=== PATIENT | female | born 1940 | race Caucasian/White ===

== ENCOUNTER → 2016-11-02 | Outpatient (CLI) | payer MEDICARE ==
[2016-11-02 13:40] LABS: MEAN CORPUSCULAR HEMOGLOBIN 30.9 pg (27.0-33.0); MEAN CORPUSCULAR HGB CONC 32.8 g/dl (32.0-36.5); MEAN CORPUSCULAR VOLUME 94.2 fl (80.0-96.0); PLATELET COUNT, AUTOMATED 170 10^3/uL (150-450); RED CELL DISTRIBUTION WIDTH 11.9 % (11.5-14.5); WHITE BLOOD COUNT 3.1 10^3/uL (4.0-10.0)
[2016-11-02 13:42] LABS: ADD MANUAL DIFFER YES; DIFF SLIDE NUMBER 167
[2016-11-02 14:17] LABS: EOSINOPHILS 1 % (0-5)
[2016-11-02 14:19] LABS: ANISOCYTOSIS 1+
[2016-11-02 14:49] LABS: ALBUMIN 3.8 GM/DL (3.2-5.2); ALKALINE PHOSPHATASE 77 U/L (45-117); ALT/SGPT 12 U/L (12-78); ANION GAP 7 MEQ/L (8-16); AST/SGOT 19 U/L (15-37); BILIRUBIN,TOTAL 0.5 MG/DL (0.2-1.0); BLOOD UREA NITROGEN 10 MG/DL (7-18); CALCIUM LEVEL 8.9 MG/DL (8.8-10.2); CARBON DIOXIDE LEVEL 27 MEQ/L (21-32); CHLORIDE LEVEL 103 MEQ/L (98-107); CREATININE FOR GFR 0.88 MG/DL (0.55-1.02); FREE T4 1.09 NG/DL (0.76-1.46); GLOMERULAR FILTRATION RATE > 60.0 (>39); GLUCOSE, FASTING 92 MG/DL (83-110); POTASSIUM SERUM 4.1 MEQ/L (3.5-5.1); SODIUM LEVEL 137 MEQ/L (136-145)
== END ==
LOC: M SMT 10:04
PROVIDERS: ATTEND Physician Assistant
DX: R42 Dizziness and giddiness (principal)

== ENCOUNTER → 2017-11-04 | Outpatient (CLI) | payer MEDICARE ==
[2017-11-04 13:54] LABS: BASO % 0.9 % (0.0-1.0); EOS # 0.1 10^3/uL (0.0-0.50); HEMATOCRIT 36.9 % (36.0-47.0); LYMPH # 0.7 10^3/uL (1.5-4.5); LYMPH % 19.3 % (24.0-44.0); MEAN CORPUSCULAR HEMOGLOBIN 30.8 pg (27.0-33.0); MEAN CORPUSCULAR HGB CONC 32.5 g/dl (32.0-36.5); MEAN CORPUSCULAR VOLUME 94.9 fl (80.0-96.0); MONO # 0.3 10^3/uL (0.0-0.8); MONO % 9.8 % (0.0-5.0); NEUTROPHILS # 2.3 10^3/uL (1.8-7.7); PLATELET COUNT, AUTOMATED 177 10^3/uL (150-450); RED BLOOD COUNT 3.89 10^6/uL (4.00-5.40); RED CELL DISTRIBUTION WIDTH 12.1 % (11.5-14.5); WHITE BLOOD COUNT 3.4 10^3/uL (4.0-10.0)
[2017-11-04 14:22] LABS: ALBUMIN 3.8 GM/DL (3.2-5.2); ALBUMIN/GLOBULIN RATIO 0.83 (1.00-1.93); ALKALINE PHOSPHATASE 75 U/L (45-117); ALT/SGPT 12 U/L (12-78); ANION GAP 8 MEQ/L (8-16); AST/SGOT 19 U/L (7-37); BILIRUBIN,TOTAL 0.5 MG/DL (0.2-1.0); BLOOD UREA NITROGEN 10 MG/DL (7-18); CALCIUM LEVEL 8.6 MG/DL (8.8-10.2); CARBON DIOXIDE LEVEL 26 MEQ/L (21-32); CHLORIDE LEVEL 103 MEQ/L (98-107); CREATININE FOR GFR 1.02 MG/DL (0.55-1.30); FERRITIN 73 NG/ML (8-252); FREE T4 1.12 NG/DL (0.76-1.46); GLOMERULAR FILTRATION RATE 56.2 (>39); GLUCOSE, FASTING 87 MG/DL (70-100); IRON (FE) 89 UG/DL (50-170); PERCENT SATURATION 28.3 % (13.2-45.0); SODIUM LEVEL 137 MEQ/L (136-145); TOTAL IRON BINDING CAPACITY 315 UG/DL (250-450); TOTAL PROTEIN 8.4 GM/DL (6.4-8.2)
[2017-11-06 00:06] LABS: Lyme Disease IgG/IgM Antibodie <0.91 ISR (0.00-0.90); Lyme Disease IgM Ab Quantitati <0.80 index (0.00-0.79)
== END ==
LOC: M SMT 09:40
DX: Z00.01 Encounter for general adult medical examination with abnormal findings (principal); Z79.899 Other long term (current) drug therapy
CPT/HCPCS: 83550

== ENCOUNTER → 2019-06-19 | Outpatient (CLI) | payer MEDICARE ==
[2019-06-19 15:35] LABS: BASO % 0.8 % (0.0-1.0); EOS % 0.8 % (0.0-3.0); HEMATOCRIT 37.6 % (36.0-47.0); HEMOGLOBIN 12.4 g/dl (12.0-15.5); LYMPH # 0.6 10^3/uL (1.5-5.0); LYMPH % 12.4 % (24.0-44.0); MEAN CORPUSCULAR HEMOGLOBIN 32.1 pg (27.0-33.0); MEAN CORPUSCULAR VOLUME 97.4 fl (80.0-96.0); MONO # 0.4 10^3/uL (0.0-0.8); MONO % 8.5 % (0.0-5.0); NEUTROPHILS # 3.9 10^3/uL (1.5-8.5); NEUTROPHILS % 77.3 % (36.0-66.0); PLATELET COUNT, AUTOMATED 208 10^3/uL (150-450); RED BLOOD COUNT 3.86 10^6/uL (4.00-5.40); WHITE BLOOD COUNT 5.1 10^3/uL (4.0-10.0)
[2019-06-20 15:49] LABS: BILIRUBIN,TOTAL 0.4 MG/DL (0.2-1.0); CALCIUM LEVEL 9.3 MG/DL (8.8-10.2); CHOLESTEROL RISK RATIO 2.45 (<5); CREATININE FOR GFR 0.98 MG/DL (0.55-1.30); FREE T4 1.27 NG/DL (0.76-1.46); GLOMERULAR FILTRATION RATE 58.7 (>39); POTASSIUM SERUM 3.9 MEQ/L (3.5-5.1); THYROID STIMULATING HORMONE 2.37 uIU/ML (0.358-3.740); TOTAL PROTEIN 7.9 GM/DL (6.4-8.2)
[2019-06-20 16:03] LABS: TOTAL 25(OH) VITAMIN D 34.6 NG/ML (30.0-100.0)
== END ==
LOC: M PLALAB 13:40
PROVIDERS: ATTEND Physician Assistant
DX: R53.83 Other fatigue (principal); Z79.899 Other long term (current) drug therapy

== ENCOUNTER → 2019-10-13 | Outpatient (CLI) | payer MEDICARE | LOC: M LABSMTC 12:22 | PROVIDERS: ATTEND Family Medicine | DX: Z11.59 Encounter for screening for other viral diseases (principal) | CPT/HCPCS: C9803; U0003 ==

== ENCOUNTER → 2019-11-15 | Outpatient (CLI) | payer MEDICARE ==
[2019-11-15 13:52] LABS: BASO % 0.7 % (0.0-1.0); EOS # 0.1 10^3/uL (0.0-0.5); EOS % 1.5 % (0.0-3.0); HEMATOCRIT 35.6 % (36.0-47.0); HEMOGLOBIN 11.2 g/dl (12.0-15.5); LYMPH # 0.6 10^3/uL (1.5-5.0); LYMPH % 15.7 % (24.0-44.0); MEAN CORPUSCULAR HEMOGLOBIN 30.4 pg (27.0-33.0); MEAN CORPUSCULAR HGB CONC 31.5 g/dl (32.0-36.5); MEAN CORPUSCULAR VOLUME 96.7 fl (80.0-96.0); MONO # 0.4 10^3/uL (0.0-0.8); MONO % 9.6 % (0.0-5.0); NEUTROPHILS % 72.3 % (36.0-66.0); PLATELET COUNT, AUTOMATED 191 10^3/uL (150-450); RED BLOOD COUNT 3.68 10^6/uL (4.00-5.40); WHITE BLOOD COUNT 4.1 10^3/uL (4.0-10.0)
[2019-11-15 14:15] LABS: ALBUMIN 3.7 GM/DL (3.2-5.2); ALT/SGPT 9 U/L (12-78); BILIRUBIN,TOTAL 0.4 MG/DL (0.2-1.0); BLOOD UREA NITROGEN 16 MG/DL (7-18); CALCIUM LEVEL 9.3 MG/DL (8.8-10.2); CARBON DIOXIDE LEVEL 30 MEQ/L (21-32); CHLORIDE LEVEL 105 MEQ/L (98-107); CREATININE FOR GFR 0.87 MG/DL (0.55-1.30); GLOMERULAR FILTRATION RATE > 60.0 (>39); GLUCOSE, FASTING 72 MG/DL (70-100); POTASSIUM SERUM 4.3 MEQ/L (3.5-5.1); SODIUM LEVEL 139 MEQ/L (136-145); TOTAL PROTEIN 7.5 GM/DL (6.4-8.2)
[2019-11-15 14:23] LABS: TOTAL 25(OH) VITAMIN D 38.7 NG/ML (30.0-100.0)
[2019-11-15 14:24] LABS: FOLATE 13.4 NG/ML (>5.4); VITAMIN B12 LEVEL 412 PG/ML (247-911)
[2019-11-21 11:12] LABS: CERULOPLASMIN 22.1 mg/dL (19.0-39.0); COPPER PLASMA 108 ug/dL (72-166); LEAD BLOOD ADULT <1 ug/dL (0-4); Lyme Disease IgG/IgM Antibodie <0.91 ISR (0.00-0.90); Lyme Disease IgM Ab Quantitati <0.80 index (0.00-0.79); MERCURY LEVEL <1.0 ug/L (0.0-14.9); VITAMIN B1 LEVEL WHOLE BLOOD 95.1 nmol/L (66.5-200.0); VITAMIN B6,PYRIDOXAL PHOSPHATE 18.1 ug/L (2.0-32.8); VITAMIN E(ALPHA TOCOPHEROL) 8.6 mg/L (9.0-29.0); VITAMIN E(GAMMA TOCOPHEROL) 0.5 mg/L (0.5-4.9)
== END ==
LOC: M PLALAB 11:02
PROVIDERS: ATTEND Psychiatry & Neurology Neurology
DX: R25.1 Tremor, unspecified (principal); R53.83 Other fatigue; Z79.899 Other long term (current) drug therapy

== ENCOUNTER → 2020-11-29 | Outpatient (CLI) | payer MEDICARE ==
[~2020-11-29] MED LIST: CARB25TA18 PO; LEXA1TAB PO
[2020-11-29 16:04] LABS: EOS # 0.1 10^3/uL (0.0-0.5); EOS % 2.6 % (0.0-3.0); HEMATOCRIT 34.7 % (36.0-47.0); HEMOGLOBIN 10.8 g/dl (12.0-15.5); LYMPH # 0.6 10^3/uL (1.5-5.0); LYMPH % 14.7 % (24.0-44.0); MEAN CORPUSCULAR HEMOGLOBIN 30.6 pg (27.0-33.0); MEAN CORPUSCULAR HGB CONC 31.1 g/dl (32.0-36.5); MEAN CORPUSCULAR VOLUME 98.3 fl (80.0-96.0); MONO # 0.4 10^3/uL (0.0-0.8); MONO % 11.4 % (2.0-8.0); NEUTROPHILS # 2.7 10^3/uL (1.5-8.5); PLATELET COUNT, AUTOMATED 147 10^3/uL (150-450); RED BLOOD COUNT 3.53 10^6/uL (4.00-5.40); WHITE BLOOD COUNT 3.9 10^3/uL (4.0-10.0)
[2020-11-29 16:41] LABS: CALCIUM LEVEL 8.6 MG/DL (8.8-10.2); CREATININE FOR GFR 1.04 MG/DL (0.55-1.30); GLOMERULAR FILTRATION RATE 54.6 (>39); MAGNESIUM LEVEL 0.7 MG/DL (1.8-2.4); POTASSIUM SERUM 4.3 MEQ/L (3.5-5.1)
== END ==
LOC: M PLALAB 11:52
PROVIDERS: ATTEND Physician Assistant
DX: Z01.818 Encounter for other preprocedural examination (principal)

== ENCOUNTER → 2020-12-21 | Outpatient (CLI) | payer MEDICARE ==
[~2020-12-21] MED LIST changes: +B-12100T2 PO; +VITAMIN D PO
== END ==
LOC: M LABSMTC 09:25
PROVIDERS: ATTEND Anesthesiology
DX: Z01.818 Encounter for other preprocedural examination (principal); Z11.52 Encounter for screening for COVID-19

== ENCOUNTER 2020-12-26 11:57 | Day surgery (SDC) | payer MEDICARE ==
[~2020-12-26] VITALS: Ht 154.9 cm; Wt 64.5 kg
[~2020-12-26 11:57] MED LIST changes: +DUOVISC (0.50ML VISCOAT/0.85ML PROVISC) OPHTH KIT As Ordered ONE; +LIDOCAINE 1% SDV 5ML VIAL As Ordered ONE; +LR 1,000 ML IV SCH; +MAXITROL OPHTH SUSP 5 ML As Ordered ONE; +MIDAZOLAM INJ 2MG/2ML VIAL (J2250 PER 1MG) As Ordered ONE; +fentaNYL 100 MCG/2 ML INJECTION (J3010) As Ordered ONE
--- OUTSIDE RECORDS SUMMARY | 2020-12-26 12:02 | CCD | Continuity of Care Document ---
Author Author Sonia VILLALPANDO Organization Unknown Address [address] [place] [address] 6 [address] [place] [address] Phone [phone] Care Team Providers Care Customer Service Leader Name Role Phone Ana Laura Amato D.O. AUTM [phone] Aamir Garcia AUTM [phone] Problems Active Problems Provider Date Dizziness and giddiness MAE Denis Onset: 10/31/19 16 Basal cell carcinoma of face MAE Denis Onset: 02/2017 Insomnia MAE Denis Onset: 12/08/2017 History of malignant neoplasm of skin MAE Denis O nset: 12/08/2017 Parkinson's disease Onset: Social History Type Date Description Comments Sex Unknown ETOH Use Denies alcohol use Tobacco Use Start: Unknown Patient has never smoked Recreational Drug Use Denies Drug Use Smoking Status Reviewed: 11/28/20 Patient has never smoked Exercise Type/Frequency Walks daily Sun Exposure Uses sunscreen Seat Belt/Car Seat Always uses seat belt Allergies and adverse reactions Active Allergies Criticality Reaction | Severity Comments Date Penicillin Unable to assess criticality Urticaria 10/30/2015 Medications Active Medications SIG Qnty Indications Ordering Provide r Date Vitamin B 12 500mcg Tablets 1 by mouth every day 90tabs D51.8 Ana Laura Amato D.O. 01/29 Azelastine HCL (Nasal) 0.15% Solut ion 2 sprays each nostril daily 90ml J30.9 Ana Laura Amato D.O. 01/30/2020 Vitamin D3 5000Unit Capsules 1 by mouth every day Unknown Ropinirole HCL 0.25mg Tablets take one by mouth three times a day Unknown 00 Multivitamin Adult Tablets 1 by mouth every day Unknown Escitalopram Oxalate 10mg Tablets Unknown Carbidopa-Levodopa ER 25-100mg Tab lets ER Unknown Immunizations Description No Information Available Vital Signs Date Vital Result Comment 11/29/2020 10:43am BP Systolic 138 mmHg BP Diastolic 82 mmHg Height 61.3 inches 5'1.30" Weight 145.00 lb BMI (Body Mass Index) 27.1 kg/m2 Heart Rate 77 /min Respiratory Rate 20 /min Body Temperature 97.4 F O2 % BldC Oximetry 99 % [place] Body Weight 105 lb 01/30/2020 10:46am BP Systolic 132 mmHg BP Diastolic 86 mmHg Height 61.3 inches 5'1.30" Weight 140.38 lb BMI (Body Mass Index) 26.3 kg/m2 Heart Rate 78 /min Respiratory Rate 16 /min Body Temperature 97.8 F O2 % BldC Oximetry 98 % [place] Body Weight 105 lb Results Test Acquired Date Facility Test Result H/L Range Note Basic Metabolic Profile 11/29/2020 [facility] Outpatient T lety (Registration) [address] [place] [address] [phone] Glucose, Fasting 79 mg/dL Normal 70-100 Blood Urea Nitrogen 15 mg/dL Normal 7-18 Creatinine For GFR 1.04 mg/dL Normal 0.55-1.30 Glomerular Filtration Rate 54.6 Normal >39 1 Sodium Level 139 mEq/L Normal 136-145 Potassium Serum 4.3 mEq/L Normal 3.5-5.1 Chloride Level 106 mEq/L Normal 98-107 Carbon Dioxide Level 29 mEq/L Normal 21-32 Anion Gap 4 mEq/L Low 8-16 Calcium Level 8.6 mg/dL Low 8.8-10.2 CBC With Differential 11/29/2020 [facility] Outpatient Tisha moore (Registration) [address] [place] [address] [phone] White Blood Count 3.9 10 Low 4.0-10.0 Red Blood Count 3.53 10 Low 4.00-5.40 Hemoglobin 10.8 g/dL Low 12.0-15.5 Hematocrit 34.7 % Low 36.0-47.0 Mean Corpuscular Volume 98.3 fl High 80.0-96.0 Mean Corpuscular Hemoglobin 30.6 pg Normal 27.0-33.0 Mean Corpuscular HGB Conc 31.1 g/dL Low 32.0-36.5 Red Cell Distribution Width 12.7 % Normal 11.5-14.5 Platelet Count, Automated 147 10 Low 150-450 Neutrophils % 70.0 % High 36.0-66.0 Lymph % 14.7 % Low 24.0-44.0 Archer % 11.4 % High 2.0-8.0 Eos % 2.6 % Normal 0.0-3.0 Baso % 1.0 % Normal 0.0-1.0 Immature Granulocyte % 0.3 % Normal 0-3.0 Nucleated Red Blood Cell % 0.0 % Normal 0-0 Neutrophils # 2.7 10 Normal 1.5-8.5 Lymph # 0.6 10 Low 1.5-5.0 Archer # 0.4 10 Normal 0.0-0.8 Eos # 0.1 10 Normal 0.0-0.5 Baso # 0.0 10 Normal 0.0-0.2 Laboratory test finding 11/29/2020 [facility] Outpatient lety (Registration) [address] [place] [address] [phone] Magnesium Level 0.7 mg/dL Critical low 1.8-2.4 Order 11/29/2020 In House Orders EKG see results in chart 1 Units are mL/min/1.73 m2 Chronic Kidney Disease Staging per NKF: Stage I & II GFR >=60 Normal to Mildly Decreased Stage III GFR 30-59 Moderately Decreased Stage IV GFR 15-29 Severely Decreased Stage V GFR <15 Very Little GFR Left ESRD GFR <15 on LIGHTING ADVISER Procedures Date Code Description Status 11/29/2020 52201 Office/Outpatient Established Lo w MDM 20-29 Min Completed 11/29/2020 78211 Electrocardiogram Complete Compl eted Medical Devices Description No Information Available Encounters Type Date Location Provider Dx Diagnosis Office Visit 11/29/2020 10:40a [facility] MAE Stein Z01.818 Encounter for other preproce dural examination H25.21 Age-related cataract, morgag nian type, right eye Assessments Date Code Description Provider 11/29/2020 Z01.818 Encounter for other preprocedura l examination MAE Denis 11/29/2020 H25.21 Age-related cataract, morgagnian type, right eye MAE Denis Plan of Treatment Future Appointment(s):* 06/11/2021 9:00 am - Ana Laura Amato D.O. at [facility] 11/29/2020 - MAE Denis* Z01.818 Encounter for other preprocedural examination* Comments:* Your exam was unremarkable today, and we will check baseline labs. Given those being acceptable, we will deem you medically optimized for your upcoming procedure. * Follow up:* May with for Medicare wellness visit. * H25.21 Age-related cataract, morgagnian type, right eye Functional Status Description No Information Available Mental Status Description No Information Available Referrals Description No Information Available
--- OUTSIDE RECORDS SUMMARY | 2020-12-26 12:02 | CCD | Continuity of Care Document ---
Author Author Sonia VILLALPANDO Organization Unknown Address [address] [place] [address] 6 [address] [place] [address] Phone [phone] Care Team Providers Care Floorman Name Role Phone Ana Laura Amato D.O. AUTM Aamir Garcia AUTM [phone] Problems Active Problems Provider Date Dizziness and [...] F O2 % BldC Oximetry 99 % [place] Body Weight 105 lb 01/30/2020 10:46am BP Systolic 132 mmHg BP Diastolic 86 mmHg Height 61.3 inches 5'1.30" Weight 140.38 lb BMI (Body Mass Index) 26.3 kg/m2 Heart Rate 78 /min Respiratory Rate 16 /min Body Temperature 97.8 F O2 % BldC Oximetry 98 % [place] Body Weight 105 lb Results Test Acquired Date Facility Test Result H/L Range Note Basic Metabolic Profile 11/29/2020 [facility] Outpatient T lety (Registration) [address] [place] [address] [phone] Glucose, Fasting 79 mg/dL Normal 70-100 Blood [...] mg/dL Low 8.8-10.2 CBC With Differential 11/29/2020 [facility] Outpatient Tisha moore (Registration) [address] [place] [address] [phone] White Blood Count 3.9 10 Low 4.0-10.0 [...] 36.0-66.0 Lymph % 14.7 % Low 24.0-44.0 [place] % 11.4 % High 2.0-8.0 Eos % 2.6 % Normal 0.0-3.0 Baso % 1.0 % Normal 0.0-1.0 Immature Granulocyte % 0.3 % Normal 0-3.0 Nucleated Red Blood Cell % 0.0 % Normal 0-0 Neutrophils # 2.7 10 Normal 1.5-8.5 Lymph # 0.6 10 Low 1.5-5.0 Falls # 0.4 10 Normal 0.0-0.8 Eos # 0.1 10 Normal 0.0-0.5 Baso # 0.0 10 Normal 0.0-0.2 Laboratory test finding 11/29/2020 [facility] Outpatient lety (Registration) [address] [place] [address] [phone] Magnesium Level 0.7 mg/dL Critical low 1.8-2.4 Order 11/29/2020 In House Orders EKG see results in chart 1 Units are mL/min/1.73 m2 Chronic Kidney Disease Staging per NKF: Stage I & II GFR >=60 Normal to Mildly Decreased Stage III GFR 30-59 Moderately Decreased Stage IV GFR 15-29 Severely Decreased Stage V GFR <15 Very Little GFR Left ESRD GFR <15 on ETL CONSULTANT Procedures Date Code Description Status 11/29/2020 34573 Office/Outpatient Established Lo w MDM 20-29 Min Completed 11/29/2020 49325 Electrocardiogram Complete Compl eted Medical Devices Description No Information Available Encounters Type Date Location Provider Dx Diagnosis Office Visit 11/29/2020 10:40a Family Medicine [facility] MAE Stein Z01.818 Encounter for other preproce dural examination H25.21 Age-related cataract, morgag nian type, right eye Assessments Date Code Description Provider 11/29/2020 Z01.818 Encounter for other preprocedura l examination MAE Denis 11/29/2020 H25.21 Age-related cataract, morgagnian type, right eye MAE Denis Plan of Treatment Future Appointment(s):* 06/11/2021 9:00 am - Ana Laura Amato D.O. at [facility] 11/29/2020 - MAE Denis* Z01.818 Encounter for [...]
--- OUTSIDE RECORDS SUMMARY | 2020-12-26 12:02 | CCD ---
Author Author Raymond Pittman MD [facility] Organization Raymond Pittman MD [facility] Address [address] [address] Phone Care Team Providers Care Operations Expert Name Role Phone Toya GOMEZ, ANNALISA, Raymond Javier Unavailable [phone] Ana Laura Amato D.O. 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 - 12:00AM Raymond babcock MD, FACS Active Cataract Senile Posterior Subcapsular Polar 10/12/2017 - 12:00AM Raymond Pittman MD, FACS Active Cataract Senile Nuclear 10/12/2017 - 12:00AM Raymond Pittman MD, FACS Active Dry Eye Syndrome Both Eyes 10/12/2017 - 12:00AM Raymond Pittman MD, FACS Active Vitreous Disorders Degeneration 10/12/2017 - 12:00AM Raymond Pittman MD, FACS Active Plan of Treatment No Plan of Treatment Recorded Assessments Includes: Assessments for all patient encounters Findings Encounter Date Acute atopic conjunctivitis 8 Week Follow-Up with Raymond Malcolm MD, FACS 11/20/2019 Chronic allergic conjunctivitis 8 Week Follow-Up with Raymond Pittman MD, FACS 11/20/2019 Dry eye syndrome 8 Week Follow-Up with Raymond giordano MD, FACS 11/20/2019 Acute atopic conjunctivitis TRIAGE NON URGENT with Raymond Pittman MD, FACS 08/24/2019 Chronic allergic conjunctivitis TRIAGE NON URGENT with Raymond Pittman MD, FACS 08/24/2019 Dry eye syndrome TRIAGE NON URGENT with Raymond babcock MD, FACS 08/24/2019 Chronic allergic conjunctivitis TRIAGE NON URGENT with Raymond Pittman MD, FACS 07/13/2019 Dry eye syndrome of both eyes TRIAGE NON URGENT with Luis Alberto Pittman MD, FACS 07/13/2019 Dry eye syndrome of both eyes 3 Month Follow-Up with Luis Alberto Pittman MD, FACS 09/26/2018 Dry eye syndrome of both eyes 5 Month Follow-Up with Luis Alberto Pittman MD, FACS 06/09/2018 Dry eye syndrome of both eyes 8 Week Follow-Up with Hasmukh Pittman MD, FACS 12/16/2017 Bilateral cortical senile cataract NEW PATIENT WITH RE FERRAL with Raymond Pittman MD, FACS 10/12/2017 Chronic allergic conjunctivitis NEW PATIENT WITH REFER RAL with Raymond Blanco MD, FACS 10/12/2017 Dry eye syndrome of both eyes NEW PATIENT WITH REFERRA L with Raymond Pittman MD, FACS 10/12/2017 Myogenic ptosis NEW PATIENT WITH REFERRAL with Raymond Pittman MD, FACS 10/12/2017 Nuclear senile cataract NEW PATIENT WITH REFERRAL [facility] Raymond Pittman MD, FACS 10/12/2017 Posterior subcapsular polar senile cataract NEW PATIEN T WITH REFERRAL with Raymond Pittman MD, FACS 10/12/2017 Vitreous degeneration NEW PATIENT WITH REFERRAL [facility] Raymond Pittman MD, FACS 10/12/2017 Instructions Instructions not supported for this document typeNo Instructions Recorded Medical Equipment - Implanted Devices Includes: Current and historical DevicesNo Medical Equipment Recorded Medications Includes: Current and historical Medications Current Medications (continue as prescribed) rOPINIRole HCl 0.25 MG Oral Tablet 11/20/2019 Provi rob: Diagnosis: Lotemax 0.5% Ophthalmic Suspension 11/20/2019 Provi rob: Raymond Pittman MD, FACS Diagnosis: Other chronic allerg ic conjunctivitis One drop in each eye once a day for 3 we eks then once every other day (use only as needed) prednisoLONE Acetate 1% Ophthalmic Suspension 08/24/2019 Provider: Raymond Pittman MD, FACS Diagnosis: Acute atopic conjunc tivitis, bilateral One drop to both eyes twice a day for 2 weeks, once a day for 2 weeks, then stop Sodium Chloride (Hypertonic) 5% Ophthalmic Ointment 07/13/19 Provider: Raymond Pittman MD, FACS Diagnosis: Dry eye syndrome of bilateral lacrimal glands apply thin bead to right lower eyelid in the morning for 8 w eeks. Systane 0.4-0.3% Ophthalmic Gel 12/16/2017 Provider : Diagnosis: Medications Administered Includes: Administered Medications in patient's chartNo Administered Medications Recorded Vital Signs Includes: Vital Signs from 12/09/2019 through 12/08/2020No Vital Signs Recorded For Specified Dates Results Includes: Results from 12/09/2019 through 12/08/2020No Results Recorded For Specified Dates History of Present Illness History of Present Illness not supported for this document typeNo History of Present Illness Recorded Social History Description Last Updated Never smoked 08/24/2019 No consumption of alcohol 08/24/2019 No tobacco use 08/24/2019 Not using drugs 08/24/2019 Smoking status : Never smoker 08/24/2019 Procedures and Surgical History Surgical History Last Updated Surgical / procedural history Hysterectomy 1989, Gall bladder 201108/24/2019 Medical History Includes: Medical History in patient's chart Description Last Updated Currently wearing eyeglasses Readers 08/24/2019 No recent change in medical history 08/24/2019 Reported medical history Lyme disease 201108/24/2019 Family History Includes: Family History in patient's chart Description Last Updated Maternal history of cataract 08/24/2019 Maternal history of thyroid disorder 08/24/2019 [place] history of arthritis 08/24/2019 [place] history of hypertension 08/24/2019 Review of Systems Review of Systems not supported for this document typeNo Review of Systems Recorded Mental Status Mental Status not supported for this document typeNo Mental Status Recorded Functional Status Functional Status not supported for this document typeNo Functional Status Recorded Physical Exam Physical Exam not supported for this document typeNo Physical Exam Recorded Immunizations Includes: Immunizations in patient's chartNo Immunizations Recorded Allergies Includes: Active, inactive, and resolved Allergies Substance Type Reaction Onset Date - Time Resolved Date - Ti me Status Penicillins Allergy 10/12/2017 - 12:00AM Act loyd Encounters Includes: Encounters from 12/09/2019 through 12/08/2020 Encounter Provider Location Date Check-In Time Check-Out Time D iagnosis Cataract Evaluation Raymond Pittman MD [facility] 11/01/2020 1:38 PM 4:11PM 1 Year Follow-Up Raymond Pittman MD, FACS Raymond Sahu [facility] 10/02/2020 7:45AM 8:40AM Insurance Includes: Active Insurance Policies Plan Name Member ID Group # Subscriber Relationship Effective Da any 1 - Medicare Part B [facility] ([facility]) [id number] Sonia alves Self 2 - [facility] [id number] Sonia Bolton Self Advance Directives Includes: Current Advance DirectivesNo Advance Directives Recorded Health Concerns Includes: Active Health ConcernsNo Active Health Concerns Recorded Goals Includes: Active GoalsNo Active Goals Recorded Interventions Includes: Interventions for active GoalsNo Interventions Recorded Evaluations & Outcomes Includes: Evaluations & Outcomes for active GoalsNo Outcomes Recorded
--- OUTSIDE RECORDS SUMMARY | 2020-12-26 12:02 | CCD | Continuity of Care Document ---
Author Author Sonia VILLALPANDO Organization Unknown Address [address] [place] [address] 6 [address] [place] [address] Phone [phone] Care Team Providers Care Irrigation System Installer Name Role Phone Ana Laura Amato D.O. AUTM Aamir Garcia AUTM [phone] Problems Active Problems Provider Date Dizziness and [...] F O2 % BldC Oximetry 99 % [place] Body Weight 105 lb 01/30/2020 10:46am BP Systolic 132 mmHg BP Diastolic 86 mmHg Height 61.3 inches 5'1.30" Weight 140.38 lb BMI (Body Mass Index) 26.3 kg/m2 Heart Rate 78 /min Respiratory Rate 16 /min Body Temperature 97.8 F O2 % BldC Oximetry 98 % [place] Body Weight 105 lb Results Test Acquired Date Facility Test Result H/L Range Note CBC W/Automated Diff 11/29/2020 [facility] [place], [place] [id number] [phone] CBC W/Automated Diff (SEE NOTE) 1 WBC 3.9 10^3/uL Low 4.2 - 11.0 RBC 3.44 10^6/uL Low 4.20 - 5.40 Hemoglobin 10.6 g/dL Low 12.0 - 16.0 Hematocrit 32.6 % Low 37.0 - 47.0 MCV 94.8 fL 81.0 - 101 MCH 30.8 pg 27.0 - 34.0 MCHC 32.5 g/dL 31.0 - 36.0 RDW 12.8 % 11.5 - 14.5 Platelets 142 10^3/uL Low 150 - 450 MPV 10.5 fL High 7.4 - 10.4 Neut 63.0 % 37.0 - 80.0 Lymph 20.7 % Low 25.0 - 40.0 Davis 11.7 % High 3.0 - 8.0 Eos 3.8 % 0.0 - 7.0 Baso 0.5 % 0.0 - 2.5 %Ig 0.3 % High 0.0 - 0.0 %NRBC 0.0 % 0.0 - 0.0 #Neut 2.47 10^3/uL 2.00 - 6.90 #Lymph 0.81 10^3/uL 0.60 - 3.40 #Davis 0.46 10^3/uL 0.00 - 0.90 #Eos 0.15 10^3/uL 0.00 - 0.70 #Baso 0.02 10^3/uL 0.00 - 0.20 #Ig 0.01 10^3/uL 0.00 - 0.10 #NRBC 0.00 10^3/uL 0.00 - 0.00 Manual Diff NOT INDICATED RBC Morph NOT INDICATED Laboratory test finding 11/29/2020 [place] [address] [phone] Magnesium Serum 1.9 mg/dL 1.7 - 2.2 Basic Metabolic Panel 11/29/2020 [place] [address] [phone] Basic Metabolic Pane (SEE NOTE) 2 Sodium 137 mEq/L 134 - 153 Potassium 4.1 mEq/L 3.6 - 5.0 Chloride 104 mEq/L 98 - 107 Co2 23 mEq/L 22 - 30 Glucose 101 mg/dL High 70 - 99 BUN 17 mg/dL 7 - 21 Creatinine 0.9 mg/dL 0.7 - 1.5 BUN/Creat 19 8 - 27 Calcium 9.1 mg/dL 8.4 - 10.2 Anion Gap 10.0 mmol/L 8.0 - 16.0 Age 80 yrs Afr Amer GFR >60 Non-Aa GFR >60 mL/min 3 Basic Metabolic Profile 11/29/2020 [facility] Outpatient Latricia davidson (Registration) [address] [place] [address] [phone] Glucose, Fasting 79 mg/dL Normal 70-100 Blood Urea Nitrogen 15 mg/dL Normal 7-18 Creatinine For GFR 1.04 mg/dL Normal 0.55-1.30 Glomerular Filtration Rate 54.6 Normal >39 4 Sodium Level 139 mEq/L Normal 136-145 Potassium Serum 4.3 mEq/L Normal 3.5-5.1 Chloride Level 106 mEq/L Normal 98-107 Carbon Dioxide Level 29 mEq/L Normal 21-32 Anion Gap 4 mEq/L Low 8-16 Calcium Level 8.6 mg/dL Low 8.8-10.2 CBC With Differential 11/29/2020 [facility] Outpatient Tisha ting (Registration) [address] [place] [address] [phone] White Blood Count 3.9 10 Low 4.0-10.0 [...] 36.0-66.0 Lymph % 14.7 % Low 24.0-44.0 Davis % 11.4 % High 2.0-8.0 Eos % 2.6 % Normal 0.0-3.0 Baso % 1.0 % Normal 0.0-1.0 Immature Granulocyte % 0.3 % Normal 0-3.0 Nucleated Red Blood Cell % 0.0 % Normal 0-0 Neutrophils # 2.7 10 Normal 1.5-8.5 Lymph # 0.6 10 Low 1.5-5.0 Davis # 0.4 10 Normal 0.0-0.8 Eos # 0.1 10 Normal 0.0-0.5 Baso # 0.0 10 Normal 0.0-0.2 Laboratory test finding 11/29/2020 [facility] Outpatient T esting (Registration) 0 [place], [place] [id number] [phone] Magnesium Level 0.7 mg/dL Critical low 1.8-2.4 Order 11/29/2020 In House Orders EKG see results in chart 1 COMPLETE BLOOD COUNT 2 BASIC METABOLIC PANEL 3 Male GFR Interprentation 20-49 yrs >60 mL/min Normal 50-59 yrs >56 mL/min Normal 60-69 yrs >49 mL/min Normal 70-79yrs >42 mL/min Normal 80 and above >35 mL/min Normal Female GFR Interpretation 20-39 yrs >60 mL/min Normal 40-49 yrs >58 mL/min Normal 50-59 yrs >51 mL/min Normal 60-69 yrs >45 mL/min Normal 70-79 yrs >39 mL/min Normal 80 and above >32 mL/min Normal 4 Units are mL/min/1.73 m2 Chronic Kidney Disease Staging per NKF: Stage I & II GFR >=60 Normal to Mildly Decreased Stage III GFR 30-59 Moderately Decreased Stage IV GFR 15-29 Severely Decreased Stage V GFR <15 Very Little GFR Left ESRD GFR <15 on [employer] Procedures Date Code Description Status 11/29/2020 15582 Office/Outpatient Established Lo w MDM 20-29 Min Completed 11/29/2020 00961 Electrocardiogram Complete Compl eted Medical Devices Description No Information Available Encounters Type Date Location Provider Dx Diagnosis Office Visit 11/29/2020 10:40a [facility] MAE Denis Z01.818 Encounter for other preproce dural examination H25.21 Age-related cataract, morgag nian type, right eye Assessments Date Code Description Provider 11/29/2020 Z01.818 Encounter for other preprocedura l examination MAE Denis 11/29/2020 H25.21 Age-related cataract, morgagnian type, right eye MAE Denis Plan of Treatment Future Appointment(s):* 06/11/2021 9:00 am - Ana Laura Amato D.O. at [facility] 11/29/2020 - MAE Denis* Z01.818 Encounter for [...]
--- OUTSIDE RECORDS SUMMARY | 2020-12-26 12:02 | CCD | Continuity of Care Document ---
Author Author Sonia AMATO Organization Unknown Address [address] [place] [address] Phone [phone] Care Team Providers Care Baggage Porter Name Role Phone Ana Laura Amato D.O. AUTM Aamir Garcia AUTM [phone] Problems Active Problems Provider Date Dizziness and [...] F O2 % BldC Oximetry 99 % [place] Body Weight 105 lb 01/30/2020 10:46am BP Systolic 132 mmHg BP Diastolic 86 mmHg Height 61.3 inches 5'1.30" Weight 140.38 lb BMI (Body Mass Index) 26.3 kg/m2 Heart Rate 78 /min Respiratory Rate 16 /min Body Temperature 97.8 F O2 % BldC Oximetry 98 % [place] Body Weight 105 lb Results Test Acquired Date Facility Test Result H/L Range Note Coronavirus 2019 Nasopharygeal 12/21/2020 [facility] Outpa tient Testing (Registration) [address] [place] [address] [phone] Coronavirus 2019 Nasopharygeal ASSAY INFORMATIO <SEE N OTE> 1 CBC W/Automated Diff 11/29/2020 [facility] [place] [address] [phone] CBC W/Automated Diff (SEE NOTE) 2 WBC 3.9 10^3/uL Low 4.2 - 11.0 [...] Lymph 20.7 % Low 25.0 - 40.0 [place] 11.7 % High 3.0 - 8.0 Eos 3.8 % 0.0 - 7.0 Baso 0.5 % 0.0 - 2.5 %Ig 0.3 % High 0.0 - 0.0 %NRBC 0.0 % 0.0 - 0.0 #Neut 2.47 10^3/uL 2.00 - 6.90 #Lymph 0.81 10^3/uL 0.60 - 3.40 #[place] 0.46 10^3/uL 0.00 - 0.90 #Eos 0.15 10^3/uL 0.00 - 0.70 #Baso 0.02 10^3/uL 0.00 - 0.20 #Ig 0.01 10^3/uL 0.00 - 0.10 #NRBC 0.00 10^3/uL 0.00 - 0.00 Manual Diff NOT INDICATED RBC Morph NOT INDICATED Laboratory test finding 11/29/2020 [facility] [place] [address] [phone] Magnesium Serum 1.9 mg/dL 1.7 - 2.2 Basic Metabolic Panel 11/29/2020 [place] [address] [phone] Basic Metabolic Pane (SEE NOTE) 3 Sodium 137 mEq/L 134 - 153 Potassium [...] Amer GFR >60 Non-Aa GFR >60 mL/min 4 Basic Metabolic Profile 11/29/2020 [facility] Outpatient Latricia davidson (Registration) [address] [place] [address] [phone] Glucose, Fasting 79 mg/dL Normal 70-100 Blood Urea Nitrogen 15 mg/dL Normal 7-18 Creatinine For GFR 1.04 mg/dL Normal 0.55-1.30 Glomerular Filtration Rate 54.6 Normal >39 5 Sodium Level 139 mEq/L Normal 136-145 Potassium Serum 4.3 mEq/L Normal 3.5-5.1 Chloride Level 106 mEq/L Normal 98-107 Carbon Dioxide Level 29 mEq/L Normal 21-32 Anion Gap 4 mEq/L Low 8-16 Calcium Level 8.6 mg/dL Low 8.8-10.2 CBC With Differential 11/29/2020 [facility] Outpatient Tisha ting (Registration) [address] [place] [address] [phone] White Blood Count 3.9 10 Low 4.0-10.0 [...] 36.0-66.0 Lymph % 14.7 % Low 24.0-44.0 [place] % 11.4 % High 2.0-8.0 Eos % 2.6 % Normal 0.0-3.0 Baso % 1.0 % Normal 0.0-1.0 Immature Granulocyte % 0.3 % Normal 0-3.0 Nucleated Red Blood Cell % 0.0 % Normal 0-0 Neutrophils # 2.7 10 Normal 1.5-8.5 Lymph # 0.6 10 Low 1.5-5.0 Br[place]ley # 0.4 10 Normal 0.0-0.8 Eos # 0.1 10 Normal 0.0-0.5 Baso # 0.0 10 Normal 0.0-0.2 Laboratory test finding 11/29/2020 [facility] Outpatient T esting (Registration) [address] [place] [address] [phone] Magnesium Level 2.1 mg/dL Normal 1.8-2.4 6 Order 11/29/2020 In House Orders EKG see results in chart 1 ASSAY INFORMATION: Real Time RT-PCR NOTE: The COVID-19 assay has been cleared by the U.S. Food and Drug Administration under the Emergency Use Authorization (EUA). [facility] are designated as high complexity laboratories by the Clinical Laboratory Improvement Amendments of 1988(CLIA) and are qualified to perform this test. Not Detected 2 COMPLETE BLOOD COUNT 3 BASIC METABOLIC PANEL 4 Male GFR Interprentation 20-49 yrs >60 mL/min Normal 50-59 yrs >56 mL/min Normal 60-69 yrs >49 mL/min Normal 70-79yrs >42 mL/min Normal 80 and above >35 mL/min Normal Female GFR Interpretation 20-39 yrs >60 mL/min Normal 40-49 yrs >58 mL/min Normal 50-59 yrs >51 mL/min Normal 60-69 yrs >45 mL/min Normal 70-79 yrs >39 mL/min Normal 80 and above >32 mL/min Normal 5 Units are mL/min/1.73 m2 Chronic Kidney Disease Staging per NKF: Stage I & II GFR >=60 Normal to Mildly Decreased Stage III GFR 30-59 Moderately Decreased Stage IV GFR 15-29 Severely Decreased Stage V GFR <15 Very Little GFR Left ESRD GFR <15 on SHIPPING AND RECEIVING 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 6 --- 12/18/20 1055 --- MAGNES previously reported as: 0.7 *L MG/DL Procedures Date Code Description Status 11/29/2020 38603 Office/Outpatient Established Lo w MDM 20-29 Min Completed 11/29/2020 31125 Electrocardiogram Complete Compl eted Medical Devices Description No Information Available Encounters Type Date Location Provider Dx Diagnosis Office Visit 11/29/2020 10:40a [facility] MAE Denis Z01.818 Encounter for other preproce dural examination H25.21 Age-related cataract, morgag nian type, right eye Assessments Date Code Description Provider 11/29/2020 Z01.818 Encounter for other preprocedura l examination MAE Denis 11/29/2020 H25.21 Age-related cataract, morgagnian type, right eye MAE Denis Plan of Treatment Future Appointment(s):* 06/11/2021 9:00 am - Ana Laura Amato D.O. at [facility] Functional Status Description No Information Available Mental Status Description No Information Available Referrals Description No Information Available
--- OUTSIDE RECORDS SUMMARY | 2020-12-26 12:02 | CCD | Continuity of Care Document ---
Author Author Sonia VILLALPANDO Organization Unknown Address [address] [place] [address] 6 [address] [place] [address] Phone [phone] Care Team Providers Care Barrel Assembler Name Role Phone Ana Laura Amato D.O. AUTM Aamir Garcia AUTM [phone] Problems Active Problems Provider Date Dizziness and [...] F O2 % BldC Oximetry 99 % [place] Body Weight 105 lb 01/30/2020 10:46am BP Systolic 132 mmHg BP Diastolic 86 mmHg Height 61.3 inches 5'1.30" Weight 140.38 lb BMI (Body Mass Index) 26.3 kg/m2 Heart Rate 78 /min Respiratory Rate 16 /min Body Temperature 97.8 F O2 % BldC Oximetry 98 % [place] Body Weight 105 lb Results Test Acquired Date Facility Test Result H/L Range Note CBC W/Automated Diff 11/29/2020 [facility] [place], [place] [id number] [phone] CBC W/Automated Diff (SEE NOTE) 1 WBC [...] Lymph 20.7 % Low 25.0 - 40.0 [place] 11.7 % High 3.0 - 8.0 Eos 3.8 % 0.0 - 7.0 Baso 0.5 % 0.0 - 2.5 %Ig 0.3 % High 0.0 - 0.0 %NRBC 0.0 % 0.0 - 0.0 #Neut 2.47 10^3/uL 2.00 - 6.90 #Lymph 0.81 10^3/uL 0.60 - 3.40 #[place] 0.46 10^3/uL 0.00 - 0.90 #Eos 0.15 10^3/uL 0.00 - 0.70 #Baso 0.02 10^3/uL 0.00 - 0.20 #Ig 0.01 10^3/uL 0.00 - 0.10 #NRBC 0.00 10^3/uL 0.00 - 0.00 Manual Diff NOT INDICATED RBC Morph NOT INDICATED Laboratory test finding 11/29/2020 [place] [address] [phone] Magnesium Serum 1.9 mg/dL 1.7 - 2.2 Basic Metabolic Panel 11/29/2020 [place] [address] [phone] Basic Metabolic Pane (SEE NOTE) 2 Sodium [...] >60 mL/min 3 Basic Metabolic Profile 11/29/2020 [facility] Outpatient Latricia davidson (Registration) [address] [place] [address] [phone] Glucose, Fasting 79 mg/dL Normal 70-100 Blood [...] mg/dL Low 8.8-10.2 CBC With Differential 11/29/2020 [facility] Outpatient Tisha ting (Registration) [address] [place] [address] [phone] White Blood Count 3.9 10 Low 4.0-10.0 [...] 36.0-66.0 Lymph % 14.7 % Low 24.0-44.0 [place] % 11.4 % High 2.0-8.0 Eos % 2.6 % Normal 0.0-3.0 Baso % 1.0 % Normal 0.0-1.0 Immature Granulocyte % 0.3 % Normal 0-3.0 Nucleated Red Blood Cell % 0.0 % Normal 0-0 Neutrophils # 2.7 10 Normal 1.5-8.5 Lymph # 0.6 10 Low 1.5-5.0 [place] # 0.4 10 Normal 0.0-0.8 Eos # 0.1 10 Normal 0.0-0.5 Baso # 0.0 10 Normal 0.0-0.2 Laboratory test finding 11/29/2020 [facility] Outpatient T esting (Registration) 0 [place], [place] [id number] [phone] Magnesium Level 0.7 mg/dL Critical low 1.8-2.4 [...] Little GFR Left ESRD GFR <15 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 Procedures Date Code Description Status 11/29/2020 59556 Office/Outpatient Established Lo w MDM 20-29 Min Completed 11/29/2020 37671 Electrocardiogram Complete Compl eted Medical Devices Description No Information Available Encounters Type Date Location Provider Dx Diagnosis Office Visit 11/29/2020 10:40a [facility] MAE Denis Z01.818 Encounter for other preproce dural examination H25.21 Age-related cataract, morgag nian type, right eye Assessments Date Code Description Provider 11/29/2020 Z01.818 Encounter for other preprocedura l examination MAE Denis 11/29/2020 H25.21 Age-related cataract, morgagnian type, right eye MAE Denis Plan of Treatment Future Appointment(s):* 06/11/2021 9:00 am - Ana Laura Amato D.O. at [facility] 11/29/2020 - MAE Denis* Z01.818 Encounter for other preprocedural examination* Comments:* Your exam was unremarkable today, and you are deemed medically optimized for your upcoming procedure. Continue your medications as prescribed, and call for any concerns. * Follow up:* May with for Medicare wellness visit. * H25.21 Age-related cataract, morgagnian type, right eye Functional Status Description No Information Available Mental Status Description No Information Available Referrals Description No Information Available
--- OUTSIDE RECORDS SUMMARY | 2020-12-26 12:03 | CCD ---
Author Author [facility] Organization [facility] Address Unknown Phone Unavailable Care Team Providers Care Controller Mechanic Name Role Phone Maring, George PA Unavailable Unavailable Maring, George PA Unavailable Unavailable Maring, George PA Unavailable Unavailable Maring, George PA Unavailable Unavailable Maring, George PA Unavailable Unavailable Maring, George PA Unavailable Unavailable Maring, George PA Unavailable Unavailable Maring, George PA Unavailable Unavailable Maring, George PA Unavailable Unavailable Maring, George PA Unavailable Unavailable Maring, George PA Unavailable Unavailable Maring, George PA Unavailable Unavailable Maring, George PA Unavailable Unavailable Maring, George PA Unavailable Unavailable Maring, George PA Unavailable Unavailable Maring, George PA Unavailable Unavailable KIMBERLY-ANTONY, JAKE DO Unavailable Unavailable KIMBERLY-ANTONY, JAKE DO Unavailable Unavailable KIMBERLY-ANTONY, JAKE DO Unavailable Unavailable KIMBERLY-ANTONY, JAKE DO Unavailable Unavailable KIMBERLY-ANTONY, JAKE DO Unavailable Unavailable KIMBERLY-ANTONY, JAKE DO Unavailable Unavailable KIMBERLY-ANTONY, JAKE DO Unavailable Unavailable KIMBERLY-ANTONY, JAKE DO Unavailable Unavailable KIMBERLY-ANTONY, JAKE DO Unavailable Unavailable KIMBERLY-ANTONY, JAKE DO Unavailable Unavailable KIMBERLY-ANTONY, JAKE DO Unavailable Unavailable KIMBERLY-ANTONY, JAKE DO Unavailable Unavailable KIMBERLY-ANTONY, JAKE DO Unavailable Unavailable KIMBERLY-ANTONY, JAKE DO Unavailable Unavailable KIMBERLY-ANTONY, JAKE DO Unavailable Unavailable KIMBERLY-ANTONY, JAKE DO Unavailable Unavailable KIMBERLY-ANTONY, JAKE DO Unavailable Unavailable KIMBERLY-ANTONY, JAKE DO Unavailable Unavailable KIMBERLY-ANTONY, JAKE DO Unavailable Unavailable KIMBERLY-ANTONY, JAKE DO Unavailable Unavailable KIMBERLY-ANTONY, JAKE DO Unavailable Unavailable KIMBERLY-ANTONY, JAKE DO Unavailable Unavailable KIMBERLY-ANTONY, JAKE DO Unavailable Unavailable KIMBERLY-ANTONY, JAKE DO Unavailable Unavailable KIMBERLY-ANTOYN, JAKE DO Unavailable Unavailable KIMBERLY-ANTONY, JAKE DO Unavailable Unavailable KIMBERLY-ANTONY, JAKE DO Unavailable Unavailable KIMBERLY-ANTONY, JAKE DO Unavailable Unavailable KIMBERLY-ANTONY, JAKE DO Unavailable Unavailable KIMBERLY-ANTONY, JAKE DO Unavailable Unavailable KIMBERLY-ANTONY, JAKE DO Unavailable Unavailable KIMBERLY-ANTONY, JAKE DO Unavailable Unavailable KIMBERLY-ANTONY, JAKE DO Unavailable Unavailable KIMBERLY-ANTONY, JAKE DO Unavailable Unavailable KIMBERLY-ANTOYN, JAKE DO Unavailable Unavailable KIMBERLY-ANTONY, JAKE DO Unavailable Unavailable KIMBERLY-ANTONY, JAKE DO Unavailable Unavailable KIMBERLY-ANTONY, JAKE DO Unavailable Unavailable KIMBERLY-ANTONY, JAKE DO Unavailable Unavailable KIMBERLY-ANTONY, JAKE DO Unavailable Unavailable KIMBERLY-ANTONY, JAKE DO Unavailable Unavailable KIMBERLY-ANTONY, JAKE DO Unavailable Unavailable KIMBERLY-ANTONY, JAKE DO Unavailable Unavailable KIMBERLY-ANTONY, JAKE DO Unavailable Unavailable KIMBERLY-ANTONY, JAKE DO Unavailable Unavailable KIMBERLY-ANTONY, JAKE DO Unavailable Unavailable KIMBERLY-ANTONY, JAKE DO Unavailable Unavailable KIMBERLY-ANTONY, JAKE DO Unavailable Unavailable KIMBERLY-ANTONY, JAKE DO Unavailable Unavailable KIMBERLY-ANTONY, JAKE DO Unavailable Unavailable KIMBERLY-ANTONY, JAKE DO Unavailable Unavailable KIMBERLY-ANTONY, JAKE DO Unavailable Unavailable KIMBERLY-ANTONY, JAKE DO Unavailable Unavailable KIMBERLY-ANTONY, JAKE DO Unavailable Unavailable KIMBERLY-ANTONY, JAKE DO Unavailable Unavailable KIMBERLY-ANTONY, JAKE DO Unavailable Unavailable KIMBERLY-ANTONY, JAKE DO Unavailable Unavailable KIMBERLY-ANTONY, JAKE DO Unavailable Unavailable KIMBERLY-ANTONY, JAKE DO Unavailable Unavailable KIMBERLY-ANTONY, JAKE DO Unavailable Unavailable KIMBERLY-ANTONY, JAKE DO Unavailable Unavailable KIMBERLY-ANTONY, JAKE DO Unavailable Unavailable KIMBERLY-ANTONY, JAKE DO Unavailable Unavailable KIMBERLY-ANTONY, JAKE DO Unavailable Unavailable KIMBERLY-ANTONY, JAKE DO Unavailable Unavailable KIMBERLY-ANTONY, JAKE DO Unavailable Unavailable KIMBERLY-ANTONY, JAKE DO Unavailable Unavailable KIMBERLY-ANTONY, JAKE DO Unavailable Unavailable KIMBERLY-ANTONY, JAKE DO Unavailable Unavailable KIMBERLY-ANTONY, JAKE DO Unavailable Unavailable KIMBERLY-ANTONY, JAKE DO Unavailable Unavailable KIMBERLY-ANTONY, JAKE DO Unavailable Unavailable KIMBERLY-ANTONY, JAKE DO Unavailable Unavailable KIMBERLY-ANTONY, JAKE DO Unavailable Unavailable KIMBERLY-ANTONY, JAKE DO Unavailable Unavailable KIMBERLY-ANTONY, JAKE DO Unavailable Unavailable KIMBERLY-ANTONY, JAKE DO Unavailable Unavailable KIMBERLY-ANTONY, JAKE DO Unavailable Unavailable KIMBERLY-ANTONY, JAKE DO Unavailable Unavailable KIMBERLY-ANTONY, JAKE DO Unavailable Unavailable KIMBERLY-ANTONY, JAKE DO Unavailable Unavailable KIMBERLY-ANTONY, JAKE DO Unavailable Unavailable KIMBERLY-ANTONY, JAKE DO Unavailable Unavailable KIMBERLY-ANTONY, JAKE DO Unavailable Unavailable Neptali Thompson MD Unavailable Unavailable Neptali Thompson MD Unavailable Unavailable Netpali Thompson MD Unavailable Unavailable Neptali Thompson MD Unavailable Unavailable Neptali Thompson MD Unavailable Unavailable Neptali Thompson MD Unavailable Unavailable PEYTON, CAMPBELL Unavailable Unavailable PEYTON, CAMPBELL MD Unavailable Unavailable PEYTON, CAMPBELL MD Unavailable Unavailable PEYTON, CAMPBELL MD Unavailable Unavailable PEYTON, CAMPBELL MD Unavailable Unavailable PEYTON, CAMPBELL MD Unavailable Unavailable PEYTON, CAMPBELL MD Unavailable Unavailable PEYTON, CAMPBELL MD Unavailable Unavailable PEYTON, CAMPBELL MD Unavailable Unavailable PEYTON, CAMPBELL MD Unavailable Unavailable PEYOTN, CAMPBELL MD Unavailable Unavailable PEYTON, CAMPBELL MD Unavailable Unavailable PEYTON, CAMPBELL MD Unavailable Unavailable PEYTON, CAMPBELL MD Unavailable Unavailable PEYTON, CAMPBELL MD Unavailable Unavailable PEYTON, CAMPBELL MD Unavailable Unavailable PEYTON, CAMPBELL MD Unavailable Unavailable PEYTON, CAMPBELL MD Unavailable Unavailable PEYTON, CAMPBELL MD Unavailable Unavailable PEYTON, CAMPBELL MD Unavailable Unavailable PEYTON, CAMPBELL MD Unavailable Unavailable PEYTON, CAMPBELL MD Unavailable Unavailable PEYTON, CAMPBELL MD Unavailable Unavailable PEYTON, CAMPBELL MD Unavailable Unavailable PEYTON, CAMPBELL MD Unavailable Unavailable PEYTON, CAMPBELL MD Unavailable Unavailable PEYTON, CAMPBELL MD Unavailable Unavailable PEYTON, CAMPBELL MD Unavailable Unavailable PEYTON, CAMPBELL MD Unavailable Unavailable PEYTON, CAMPBELL MD Unavailable Unavailable PEYTON, CAMPBELL MD Unavailable Unavailable PEYTON, CAMPBELL MD Unavailable Unavailable PEYTON, CAMPBELL MD Unavailable Unavailable PEYTON, CAMPBELL MD Unavailable Unavailable PEYTON, CAMPBELL MD Unavailable Unavailable PEYTON, CAMPBELL MD Unavailable Unavailable PEYTON, CAMPBELL MD Unavailable Unavailable PEYTON, CAMPBELL MD Unavailable Unavailable PEYTON, CAMPBELL MD Unavailable Unavailable PEYTON, CAMPBELL MD Unavailable Unavailable PEYTON, CAMPBELL MD Unavailable Unavailable PEYTON, CAMPBELL MD Unavailable Unavailable PEYTON, CAMPBELL MD Unavailable Unavailable Corinna, Travon PA Unavailable Unavailable Corinna, Travon PA Unavailable Unavailable Corinna, Travon PA Unavailable Unavailable Corinna, Travon PA Unavailable Unavailable Corinna, Travon PA Unavailable Unavailable Corinna, Travon PA Unavailable Unavailable Corinna, Travon PA Unavailable Unavailable Corinna, Travon PA Unavailable Unavailable Corinna, Travon PA Unavailable Unavailable Corinna, Travon PA Unavailable Unavailable Corinna, Travon PA Unavailable Unavailable Corinna, Travon PA Unavailable Unavailable Corinna, Travon PA Unavailable Unavailable Corinna, Travon PA Unavailable Unavailable Corinna, Travon PA Unavailable Unavailable Corinna, Travon PA Unavailable Unavailable Corinna, Travon PA Unavailable Unavailable Corinna, Travon PA Unavailable Unavailable Corinna, Travon PA Unavailable Unavailable Corinna, Travon PA Unavailable Unavailable Corinna, Travon PA Unavailable Unavailable Corinna, Travon PA Unavailable Unavailable Corinna, Travon PA Unavailable Unavailable Corinna, Travon PA Unavailable Unavailable Corinna, Travon PA Unavailable Unavailable Corinna, Travon PA Unavailable Unavailable Corinna, Travon PA Unavailable Unavailable Corinna, Travon PA Unavailable Unavailable Corinna, Travon PA Unavailable Unavailable Corinna, Travon PA Unavailable Unavailable Corinna, Travon PA Unavailable Unavailable Corinna, Travon PA Unavailable Unavailable O[place], Travon PA Unavailable Unavailable Corinna, Travon PA Unavailable Unavailable Corinna, Travon PA Unavailable Unavailable Corinna, Travon PA Unavailable Unavailable Corinna, Travon PA Unavailable Unavailable Corinna, Travon PA Unavailable Unavailable Corinna, Travon PA Unavailable Unavailable Corinna, Travon PA Unavailable Unavailable Corinna, Travon PA Unavailable Unavailable Corinna, Travon PA Unavailable Unavailable Corinna, Travon PA Unavailable Unavailable Corinna, Travon PA Unavailable Unavailable Corinna, Travon PA Unavailable Unavailable Corinna, Travon PA Unavailable Unavailable Corinna, Travon PA Unavailable Unavailable Corinna, Travon PA Unavailable Unavailable Corinna, Travon PA Unavailable Unavailable Corinna, Travon PA Unavailable Unavailable Corinna, Travon PA Unavailable Unavailable Corinna, Travon PA Unavailable Unavailable Corinna, Travon PA Unavailable Unavailable Corinna, Travon PA Unavailable Unavailable KIMBERLY-ANTONY, JAKE DO Unavailable Unavailable KIMBERLY-ANTONY, JAKE DO Unavailable Unavailable KIMBERLY-ANTONY, JAKE DO Unavailable Unavailable KIMBERLY-ANTONY, JAKE DO Unavailable Unavailable KIMBERLY-ANTONY, JAKE DO Unavailable Unavailable KIMBERLY-ANTONY, JAKE DO Unavailable Unavailable KIMBERLY-ANTONY, JAKE DO Unavailable Unavailable KIMBERLY-ANTONY, JAKE DO Unavailable Unavailable KIMBERLY-ANTONY, JAKE DO Unavailable Unavailable KIMBERLY-ANTONY, JAKE DO Unavailable Unavailable KIMBERLY-ANTONY, JAKE DO Unavailable Unavailable KIMBERLY-ANTONY, JAKE DO Unavailable Unavailable KIMBERLY-ANTONY, JAKE DO Unavailable Unavailable KIMBERLY-ANTONY, JAKE DO Unavailable Unavailable KIMBERLY-ANTONY, JAKE DO Unavailable Unavailable KIMBERLY-ANTONY, JAKE DO Unavailable Unavailable KIMBERLY-ANTONY, JAKE DO Unavailable Unavailable KIMBERLY-ANTONY, JAKE DO Unavailable Unavailable KIMBERLY-ANTONY, JAKE DO Unavailable Unavailable KIMBERLY-ANTONY, JAKE DO Unavailable Unavailable KIMBERLY-ANTONY, JAKE DO Unavailable Unavailable KIMBERLY-ANTONY, JAKE DO Unavailable Unavailable KIMBERLY-ANTONY, JAKE DO Unavailable Unavailable KIMBERLY-ANTONY, JAKE DO Unavailable Unavailable KIMBERLY-ANTONY, JAKE DO Unavailable Unavailable KIMBERLY-ANTONY, JAKE DO Unavailable Unavailable KIMBERLY-ANTONY, JAKE DO Unavailable Unavailable KIMBERLY-ANTONY, JAKE DO Unavailable Unavailable KIMBERLY-ANTONY, JAKE DO Unavailable Unavailable KIMBERLY-ANTONY, JAKE DO Unavailable Unavailable KIMBERLY-ANTONY, JAKE DO Unavailable Unavailable KIMBERLY-ANTONY, JAKE DO Unavailable Unavailable KIMBERLY-ANTONY, JAKE DO Unavailable Unavailable KIMBERLY-ANTONY, JAKE DO Unavailable Unavailable KIMBERLY-ANTONY, JAKE DO Unavailable Unavailable KIMBERLY-ANTONY, JAKE DO Unavailable Unavailable KIMBERLY-ANTONY, JAKE DO Unavailable Unavailable KIMBERLY-ANTONY, JAKE DO Unavailable Unavailable KIMBERLY-ANTONY, JAKE DO Unavailable Unavailable KIMBERLY-ANTONY, JAKE DO Unavailable Unavailable KIMBERLY-ANTONY, JAKE DO Unavailable Unavailable KIMBERLY-ANTONY, JAKE DO Unavailable Unavailable KIMBERLY-ANTONY, JAKE DO Unavailable Unavailable KIMBERLY-ANTONY, JAKE DO Unavailable Unavailable KIMBERLY-ANTONY, JAKE DO Unavailable Unavailable KIMBERLY-ANTONY, JAKE DO Unavailable Unavailable KIMBERLY-ANTONY, JAKE DO Unavailable Unavailable KIMBERLY-ANTONY, JAKE DO Unavailable Unavailable KIMBERLY-ANTONY, JAKE DO Unavailable Unavailable KIMBERLY-ANTONY, JAKE DO Unavailable Unavailable KIMBERLY-ANTONY, JAKE DO Unavailable Unavailable KIMBERLY-ANTONY, JAKE DO Unavailable Unavailable KIMBERLY-ANTONY, JAKE DO Unavailable Unavailable KIMBERLY-ANTONY, JAKE DO Unavailable Unavailable KIMBERLY-ANTONY, JAKE DO Unavailable Unavailable KIMBERLY-ANTONY, JAKE DO Unavailable Unavailable KIMBERLY-ANTONY, JAKE DO Unavailable Unavailable KIMBERLY-ANTONY, JAKE DO Unavailable Unavailable KIMBERLY-ANTONY, JAKE DO Unavailable Unavailable KIMBERLY-ANTONY, JAKE DO Unavailable Unavailable KIMBERLY-ANTONY, JKAE DO Unavailable Unavailable KIMBERLY-ANTONY, JAKE DO Unavailable Unavailable KIMBERLY-ANTONY, JAKE DO Unavailable Unavailable KIMBERLY-ANTONY, JAKE DO Unavailable Unavailable KIMBERLY-ANTONY, JAKE DO Unavailable Unavailable KIMBERLY-ANTONY, JAKE DO Unavailable Unavailable KIMBERLY-ANTONY, JAKE DO Unavailable Unavailable KIMBERLY-ANTONY, JAKE DO Unavailable Unavailable KIMBERLY-ANTONY, JAKE DO Unavailable Unavailable KIMBERLY-ANTONY, JAKE DO Unavailable Unavailable KIMBERLY-ANTONY, JAKE DO Unavailable Unavailable KIMBERLY-ANTONY, JAKE DO Unavailable Unavailable KIMBERLY-ANTONY, JAKE DO Unavailable Unavailable KIMBERLY-ANTONY, JAKE DO Unavailable Unavailable KIMBERLY-ANTONY, JAKE DO Unavailable Unavailable KIMBERLY-ANTONY, JAKE DO Unavailable Unavailable KIMBERLY-ANTONY, JAKE DO Unavailable Unavailable KIMBERLY-ANTONY, JAKE DO Unavailable Unavailable KIMBERLY-ANTONY, JAKE DO Unavailable Unavailable KIMBERLY-ANTONY, JAKE DO Unavailable Unavailable KIMBERLY-ANTONY, JAKE DO Unavailable Unavailable KIMBERLY-ANTONY, JAKE DO Unavailable Unavailable KIMBERLY-ANTONY, JAKE DO Unavailable Unavailable KIMBERLY-ANTONY, JAKE DO Unavailable Unavailable Smith Blanco, Shari Andrade MD, FACS Unavailable Unavailable Smith Blanco, Shari Andrade MD, FACS Unavailable Unavailable Smith Blanco, Shari Andrade MD, FACS Unavailable Unavailable Smith Blanco, Shari Andrade MD, FACS Unavailable Unavailable Smith Blanco, Shari Andrade MD, FACS Unavailable Unavailable Smith Blanco, Shari Andrade MD, FACS Unavailable Unavailable Smith Blanco, Shari Andrade MD, FACS Unavailable Unavailable Smith Blanco, Shari Andrade MD, FACS Unavailable Unavailable Smith Blanco, Shari Andrade MD, FACS Unavailable Unavailable Smith Blanco, Shari Andrade MD, FACS Unavailable Unavailable Smith Blanco, Shari Andrade MD, FACS Unavailable Unavailable Smith Blanco, Shari Andrade MD, FACS Unavailable Unavailable Smith Blanco, Shari Andrade MD, FACS Unavailable Unavailable Smith Blanco, Shari Andrade MD, FACS Unavailable Unavailable Smith Blanco, Shari Andrade MD, FACS Unavailable Unavailable Smith Blanco, Shari Andrade MD, FACS Unavailable Unavailable Smith Blanco, Shari Andrade MD, FACS Unavailable Unavailable Smith Blanco, Shari Andrade MD, FACS Unavailable Unavailable Smith Blanco, Shari Andrade MD, FACS Unavailable Unavailable Smith Blanco, Shari Andrade MD, FACS Unavailable Unavailable Smith Blanco, Shari Andrade MD, FACS Unavailable Unavailable Smith Blanco, Shari Andrade MD, FACS Unavailable Unavailable Smith Blanco, Shari Andrade MD, FACS Unavailable Unavailable Smith Blanco, Shari Andrade MD, FACS Unavailable Unavailable Smith Blanco, Shari Andrade MD, FACS Unavailable Unavailable Smith Blanco, Shari Andrade MD, FACS Unavailable Unavailable Smith Blanco, Shari Andrade MD, FACS Unavailable Unavailable Smith Blanco, Shari Andrade MD, FACS Unavailable Unavailable Smith Blanco, Shari Andrade MD, FACS Unavailable Unavailable Smith Blanco, Shari Andrade MD, FACS Unavailable Unavailable Smith Blanco, Shari Andrade MD, FACS Unavailable Unavailable Smith Blanco, Shari Andrade MD, FACS Unavailable Unavailable Smith Blanco, Shari Andrade MD, FACS Unavailable Unavailable Smith Blanco, Shari Andrade MD, FACS Unavailable Unavailable Smith Blanco, Shari Andrade MD, FACS Unavailable Unavailable Smith Blanco, Shari Andrade MD, FACS Unavailable Unavailable Smith Blanco, Shari Andrade MD, FACS Unavailable Unavailable Shari Lebron MD, FACS Unavailable Unavailable Shari Lebron MD, FACS Unavailable Unavailable Mehran, Sharita Jaeger MD Unavailable Unavailable Laurent, C Heide MD Unavailable Unavailable Laurent, C Heide MD Unavailable Unavailable Laurent, C Heide MD Unavailable Unavailable Laurent, C Heide MD Unavailable Unavailable Laurent, C Heide MD Unavailable Unavailable Laurent, C Heide MD Unavailable Unavailable Laurent, C Heide MD Unavailable Unavailable Laurent, C Heide MD Unavailable Unavailable Laurent, C Heide MD Unavailable Unavailable Laurent, C Heide MD Unavailable Unavailable Laurent, C Heide MD Unavailable Unavailable Laurent, C Heide MD Unavailable Unavailable Laurent, C Heide MD Unavailable Unavailable Laurent, C Heide MD Unavailable Unavailable Laurent, C Heide MD Unavailable Unavailable Laurent, C Heide MD Unavailable Unavailable Laurent, C Heide MD Unavailable Unavailable Laurent, C Heide MD Unavailable Unavailable Laurent, C Hiede MD Unavailable Unavailable Laurent, C Heide MD Unavailable Unavailable Laurent, C Heide MD Unavailable Unavailable Laurent, C Heide MD Unavailable Unavailable Laurent, C Heide MD Unavailable Unavailable Laurent, C Heide MD Unavailable Unavailable Re-disclosure Warning The records that you are about to access may contain information from federally-assisted alcohol or drug abuse programs. If such information is present, then the following federally mandated warning applies: This information has been disclosed to you from records protected by federal confidentiality rules (42 CFR part 2). The federal rules prohibit you from making any further disclosure of this information unless further disclosure is expressly permitted by the written consent of the person to whom it pertains or as otherwise permitted by 42 CFR part 2. A general authorization for the release of medical or other information is NOT sufficient for this purpose. The Federal rules restrict any use of the information to criminally investigate or prosecute any alcohol or drug abuse patient.The records that you are about to access may contain highly sensitive health information, the redisclosure of which is protected by Article 27-F of the [facility] Public Health law. If you continue you may have access to information: Regarding HIV / AIDS; Provided by facilities licensed or operated by the [facility] Office of Mental Health; or Provided by the [facility] Office for People With Developmental Disabilities. If such information is present, then the following [place] State mandated warning applies: This information has been disclosed to you from confidential records which are protected by state law. State law prohibits you from making any further disclosure of this information without the specific written consent of the person to whom it pertains, or as otherwise permitted by law. Any unauthorized further disclosure in violation of state law may result in a fine or group home sentence or both. A general authorization for the release of medical or other information is NOT sufficient authorization for further disc losure. Family History Family Member Name Family Member Gender Family Member Status Date o f Status Description Data Source(s) Unknown Female Problem [facility] ([facility]) Unknown Female Problem [facility] ([facility]) Encounters Encounter Providers Location Date Indications Data Source(s ) Emergency Attender: Neptali Thompson MDConsultant: JAKE POP DO 11/29/2020 07:42:00 PM EDT - 11/29/2020 08:59:00 PM EDT [facility] Patient discharged. Outpatient Attender: Travon WALL [facility] 11/29/2020 10:40:00 AM EDT [facility] ([facility]) Outpatient<td ID="encounterTypeDescripti onID0">Cataract Evaluation</td><td></td><td>Raymond Pittman MD [facility]</td><td>11/01/2020</td><td>1:38PM</td><td>4:11PM</td><td></td> Raymond Pittman MD [facility] 11/01/2020 01:38:00 PM EDT - 11/01/2020 04:11:00 PM EDT [facility] (Raymond Blanco MD [facility]) <td ID="encounterTypeDescriptionID1">1 Y ear Follow-Up</td><td>Raymond Blanco MD, ANNALISA</td><td>Raymond Pittman MD [facility]</td><td>10/02/2020</td><td>7:45AM</td><td>8:40AM</td><td></td>Outpatient Attender: Raymond Blanco MD, ANNALISA Pittman MD [facility] 10/02/2020 07:45:0 0 AM EDT - 10/02/2020 08:40:00 AM EDT [facility] (Raymond Blanco MD [facility]) Outpatient Attender: CAMPBELL TODD MD Main office - [facility] 06/25/2020 08:15:00 AM EDT [facility] ([facility]) Outpatient Attender: Heide Laurent MD 0 05/25/2020 08:06:21 AM EDT - 05/25/2020 09:30:59 AM EDT [facility] Outpatient Attender: George WALL 05/17/19 09:14:30 AM EDT - 05/16/2020 09:54:19 AM EDT [facility] Outpatient Attender: George WALL 05/15/19 08:42:42 AM EDT - 05/14/2020 09:14:47 AM EDT [facility] Outpatient Attender: JAKE REYNAGA [facility] 01/30/2020 09:40:00 AM EST [facility] ([facility]) Outpatient Attender: CAMPBELL TODD MD Main office - [facility] 01/22/2020 03:00:00 PM EST [facility] ([facility]) Office Visit Attender: CAMPBELL TODD MD Main office - [facility] 12/12/2019 02:45:00 PM EST [facility] ([facility]) Outpatient Attender: JAKE REYNAGA [facility] 12/01/2019 10:40:00 AM EDT [facility] ([facility]) Outpatient<td ID="encounterTypeDescripti onID2">8 Week Follow-Up</td><td>Raymond Pittman MD, FACS</td><td>Raymond Pittman MD [facility]</td><td>11/20/2019</td><td>9:44AM</td><td>10:14AM</td><td><content ID="encounterDiagnosisID2-0">Conjunctivitis Acute Atopic</content>, <content ID="encounterDiagnosisID2-1">Conjunctivitis Chronic Allergic</content>, <content ID="encounterDiagnosisID2-2">Dry Eye Syndrome</content></td> Attender: Raymond Blanco MD, FACS Raymond Pittman MD [facility] 11/20/2019 09:44:00 AM EDT - 11/20/2019 10:14:00 AM EDT Dry Eye SyndromeConjunctivitis Acute Good picDry Eye SyndromeConjunctivitis Acute AtopicConjunctivitis Chronic AllergicConjunctivitis Chronic Allergic [facility] (Raymond Blanco MD [facility]) Dry Eye Syndrome Conjunctivitis Acute Atopic Dry Eye Syndrome Conjunctivitis Acute Atopic Conjunctivitis Chronic Allergic Conjunctivitis Chronic Allergic Outpatient Attender: CAMPBELL TODD MD Main office [facility] 11/14/2019 04:00:00 PM EDT [facility] ([facility] Outpatient Attender: Travon WALL [facility] 10/31/2019 11:20:00 AM EDT [facility] ([facility]) Immunizations Vaccine Date Status Description Data Source(s) COVID-19 VACCINE Pfizer 11/02/2020 12:00:00 AM EDT completed [facility] Vaccine Series Complete: NOThis Data was Submitted to [facility] Via [employer]. Medications Medication Brand Name Start Date Product Form Dose Route Admi nistrative Instructions Pharmacy Instructions Status Indications Reaction Description Data Source(s) Azelastine HCL (Nasal) Azelastine HCL (Nasal) 01/30/2020 12:00:[address] active [facility] ([facility]) Vitamin B 12 0.5 MG Oral Tablet Vitamin B 12 01/30/2020 12:00:[address] ORAL active [facility] ([facility]) pregabalin 25 MG Oral Capsule [Lyrica] Lyrica 12/26/2019 12:00:00 AM EST ORAL completed [facility] ([facility]) duloxetine 20 MG Delayed Release Oral Capsule [Cymbalta] [facility] 12/14/2019 12:00:00 AM EST ORAL completed [facility] ([facility]) loteprednol etabonate 5 MG/ML Ophthalmic Suspension [Lotemax] Lotemax 0.5% Ophthalmic Suspension Lotemax 0.5% Ophthalmic Suspension 11/20/2019 12:00:00 AM EDT 1 active lotepred nol etabonate 5 MG/ML Ophthalmic Suspension [Lotemax] ROSANA (Raymond Blanco MD [facility]) ropinirole 0.25 MG Oral Tablet rOPINIRole HCl 0.25 MG Oral Tablet rOPINIRole HCl 0.25 MG Oral Tablet 11/20/2019 12:00:00 AM EDT 1 active ropinirole 0.25 MG Oral Tablet ROSANA (Raymond Blanco MD [facility]) Fluticasone Propionate Fluticasone Propionate 10/31/2019 12:00:00 AM E DT completed [facility] ([facility]) gabapentin 300 MG Oral Capsule Gabapentin 08/03/2019 12:00:00 AM EDT ORAL completed [facility] ([facility], ) Insurance Providers Payer name Policy type / Coverage type Policy ID Covered democrat ID Covered democrat's relationship to foster Policy Foster Plan Information [place] Primary [id number] Self 10 [id number] Medicare [place] Medicare Primary [id number] Self 10 [id number] [place] Medicare Part B [id number] Self [id number] [facility] 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 [id number] Self [id number] [facility] HEALTH CARE OPTIONS -O/P [id number] 18 [id number] Medicare Part B [facility] Other 0 [id number] Self 0 Medicare Part B [facility] Other 0 [id number] Self 0 AARP O [id number] S [id number] MEDICARE C [id number] S [id number] MEDICARE C UNAVAILABLE S UNAVAILA BLE [employer] [id number] Self [id number] Medicare [place] Medicare Primary [id number] Self [id number] [employer] [id number] Self [id number] Medicare [place] Primary [id number] Self [id number] MEDICARE [id number] SP [id number] A MEDICARE -O/P [id number] 18 [id number] MEDICARE [id number] SP [id number] [facility] HEALTH CARE OPTIONS [id number] SP [id number] Medicare Part B [facility] Other 0 [id number] Self 0 MEDICARE PART A -O/P [id number] 18 [id number] Problems, Conditions, and Diagnoses Code Display Name Description Problem Type Effective Dates Data Source(s) G20 Parkinson's disease Parkinson's disease Diagnosis 1 07:42:00 PM EDT [facility] I493 Ventricular premature depolarization Ventricular premature depolarization Diagnosis 11/29/2020 07:42:00 PM EDT [facility] R7989 Other specified abnormal findings of blo od chemistry Other specified abnormal findings of blood chemistry Diagnosis 11/29/2020 07:42:00 PM EDT [facility] Surgeries/Procedures Procedure Description Date Indications Data Source(s) Electrocardiogram Complete 11/29/2020 12:00:00 AM EDT [facility] OFFICE OUTPATIENT VISIT 15 MINUTES 11/29/2020 12:00:00 AM EDT [facility] Surgical / procedural history Hysterectomy 1989, Gall bladder 2012 Surgical / procedural history Hysterectomy 1989, Gallbladder 2012 11/20/2019 12:00:00 AM EDT ROSANA (Raymond Blanco MD [facility]) Intermediate Eye Exam Established Patient Intermediate Eye Exam Established Patient 11/20/2019 12:00:00 AM EDT ROSANA (Johan Blanco MD [facility]) Results ID Date Data Source [id number] 12/21/2020 09:35:00 AM EST [facility] ([facility]) Name Value Range Interpretation Code Description Data Tricia rce(s) Supporting Document(s) Coronavirus 2019 Nasopharygeal Laboratory test result [facility] ([facility]) ASSAY INFORMATION: Real Time RT-PCR NOTE: The COVID-19 assay has been cleared by the U.S. Food and Drug Administration under the Emergency Use Authorization (EUA). [email or web address] and [facility] are designated as high complexity laboratories by the Clinical Laboratory Improvement Amendments of 1988(CLIA) and are qualified to perform this test. Not Detected ID Date Data Source [id number] 12/03/2020 07:30:00 AM EDT [facility] [address] [place] [address] PHONE: [phone] FAX: [phone] Name ..............: FLOR JOAO A Acct Number ...........................: [id number] ROOM. ............: TR-03 MR Number ............................: [id number] Stay type.........: E/R Discharge Date...............:11/29/20 Admit Date .....: 11/29/20 Admit Phys .............................: BARBARA Sheriff Date of ..: 1940 Family Phys ...........................: ........................[facility] Phone..............: [phone] Age.................................:80 Film# ...............:[id number] Sex.................................:F Unsigned transcriptions are preliminary reports and do not represent a medical or legal document EKG [id number] COMPLETE:11/30/20 04:03 BIS 28516 Please See Scanned Results. Name Value Range Interpretation Code Description Data Tricia rce(s) Supporting Document(s) ID Date Data Source [id number] 11/29/2020 07:42:00 PM EDT [facility] 1 OrderSheet [facility] Emergency Department [address] [place] [address] Phone #: ext- [phone] 11/29/2020 19:40 Patient: JOAO BOLTON Sex: F : 1940 Age: 80yWEIGHT:63.5 kg (S) HEIGHT:61 inches (S) BMI:26.5ALLERGIES: PenicillinsCHIEF COMPLAINT: abnormal lab, instructed to come to ED, PCPDIAGNOSIS: Ventricular premature complexLAB ORDERSOrder Description Priority Entered Acknowledged InitialedBMP STAT 19:59 11/29/2020 20:09 Barbara Kothari Jack ; Jenn LoredoCBC w Diff STAT 19:59 11/29/2020 20:09 Barbara Kothari Jack ; Jenn LoredoMagnesium STAT 19:59 11/29/2020 20:09 Barbara Kothari Jack ; Jenn LoredoDIAGNOSTIC STUDY ORDERSOrder Description Priority Entered Acknowledged InitialedMEDICATION/IV/DRIP/FLUID ORDERSOrder Description Priority Entered Acknowledged InitialedMagnesium Sulfate 20:18 11/29/2020 20:40 Torchia,2 g IVPB X1 dose: 2 Neptali Thompson ; Stacey Loredogm (HIGH ALERTMEDICATION, X1)GENERAL ORDERSOrder Description Priority Entered Acknowledged InitialedEKG 19:59 11/29/2020 20:05 Barbara Kothari Jack ; Jenn Loredo[Electronically signed by Jenn Kothari R.N. (20:59 11/29/2020)][Electronically signed by Neptali Thompson (23:07 11/29/2020)][Electronically locked by Jenn Kothari R.N. (20:59 11/29/2020)] Name Value Range Interpretation Code Description Data Tricia rce(s) Supporting Document(s) ID Date Data Source [id number] 11/29/2020 07:42:00 PM EDT [facility] 1 Medication Reconciliation Report [facility] Emergency Department [address] [place] [address] Phone #: ext- [phone] 11/29/2020 19:40 Patient: JOAO BOLTON Sex: F : 1940 Age: 80yWeight: 63.5 kgHeight/Length: 61 in.BMI: 26.5ALLERGIES: PenicillinsThe patient's Home Medications are listed below:CONTINUE TAKING THE FOLLOWING MEDICATIONS: Azelastine HCl Nasal Carbidopa-Levodopa Oral 25/100 mg, daily Escitalopram Oxalate Oral 10 mg, daily Multivitamins Oral rOPINIRole HCl Oral (0.25 mg) 1 tablet, 3x a day Vitamin B-12 Oral Vitamin D OralThe source(s) of the original Home Medication information:patientThe following Medications were given to the patient in the Emergency Department:Magnesium Sulfate [IV Drip] Drip IV bolus 0, then 2 gm 50 mL/hr, administered: 20:40 11/29/2020The following Medications were prescribed to the patient:None. Name Value Range Interpretation Code Description Data Tricia rce(s) Supporting Document(s) ID Date Data Source [id number] 11/29/2020 07:42:00 PM EDT [facility] 1 Medication Administration Record [facility] Emergency Department [address] [place] [address] Phone #: [phone] zxy- [phone] 11/29/2020 19:40 Patient: JOAO BOLTON Sex: F : 1940 Age: 80yWeight: 63.5 kgHeight/Length: 61 inBMI: 26.5ALLERGIES: Penicillins Date/Time Medication Administered Medication OrderedStart MAGNESIUM SULFATE [IV DRIP] Magnesium Sulfate 2 g IVPB X120:40 11/29/2020 Dose: 2 gm Drip IV dose: 2 gm (Stacey Sultana RAlineNAline Rate: 50 mL/hr over 1 hour(s) MEDICATION, X1)---- Dispensed: 50 mL bagStop Site: #1 right AC20:59 11/29/2020Jenn Kothari R.N. Name Value Range Interpretation Code Description Data Tricia rce(s) Supporting Document(s) ID Date Data Source [id number] 11/29/2020 07:42:00 PM EDT [facility] 1 General Instructions [facility] Emergency Department [address] [place] [address] Phone #: ext- [phone] 11/29/2020 19:40 Patient: JOAO BOLTON Sex: F : 1940 Age: 80yOccasional PVC's.INSTRUCTIONSWarnings: GENERAL WARNINGS: Return or contact your physician immediately if your conditionworsens or changes unexpectedly, if not improving as expected, or if other problems arise.Your Current Medications: Your current home medications have been reviewed.CONTINUE TAKING THE FOLLOWING MEDICATIONS:Azelastine HCl Nasal.Carbidopa-Levodopa Oral : 25/100 mg daily.Escitalopram Oxalate Oral : 10 mg daily.Multivitamins Oral.rOPINIRole HCl Oral : Tablet 0.25 mg, 1 tablet 3x a day.Vitamin B-12 Oral.Vitamin D Oral.Follow-up:Follow up with your healthcare provider.Understanding of the discharge instructions verbalized by patient. ADDITIONAL INFORMATIONHeart Palpitations 2 General Instructions [facility] Emergency Department [address] [place] [address] Phone #: ext- [phone] 11/29/2020 19:40 Patient: JOAO BOLTON Sex: F : 1940 Age: 80yPalpitations are the feeling that your heart is beating hard, fast, or i rregular. Some describe it as"pounding," "flip-flopping in the chest," or "skipped beats." Palpitations may occur in someone withheart disease. But they can also occur in a healthy person.Heart-related causes: Heart rhythm problem (arrhythmia) Heart valve disease Disease of the heart muscle (cardiomyopathy) Coronary artery disease High blood pressureNon-heart- related causes: Certain medicines such as asthma inhalers and decongestants Some herbal supplements, energy drinks and pills, and weight loss pills Illegal stimulant drugs such as cocaine, crank, methamphetamine, PCP, bath salts, and ecstasy Caffeine, alcohol, and tobacco 3 General Instructions [facility] Emergency Department [address] [place] [address] Phone #: ext- [phone] 11/29/2020 19:40 Patient: JOAO BOLTON Sex: F : 1940 Age: 80y Health conditions such as thyroid disease, anemia, anxiety, and panic disorderSometimes the cause can't be found.Home careFollow these home care tips: Don't use too much caffeine, alcohol, or tobacco, or any stimulant drugs. Tell your doctor about any prescription or vnhp-hpl-zjvtdgd or herbal medicines you take.Follow-up care Follow up with your doctor, or as advised.Call 911This is the fastest and safest way to get to the emergency department. The paramedics can also starttreatment on the way to the hospital, if needed.Don't wait until your symptoms are severe to call 911. These are reasons to call 911: Chest pain Shortness of breath Feeling lightheaded, faint, or dizzy, or losing consciousness Very irregular heartbeat Rapid heartbeat that makes you uncomfortable Slower than usual heart rate along with symptoms Chest pain with weakness, dizziness, heavy sweating, nausea, or vomiting Extreme drowsiness, confusion, or weakness Weakness of an arm or leg, or on one side of the face Trouble with speech or visionWhen to seek medical adviceCall your healthcare provider right away if you have palpitations that last longer than normal, or aredifferent from your past palpitations. [id number] [employer]. [address] [place] [address]. All rights reserved. 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 Always follow your healthcare professional's instructions. You have been given the following additional information: Palpitations(Electronically signed by Neptali Thompson 11/29/2020 23:07) Name Value Range Interpretation Code Description Data Tricia rce(s) Supporting Document(s) ID Date Data Source [id number] 11/29/2020 07:42:00 PM EDT [facility] 1 Clinical Report - Nurses [facility] Emergency Department [address] [place] [address] Phone #: ext- [phone] 11/29/2020 19:40 Patient: JOAO BOLTON Sex: F : 1940 Age: 80yTRIAGEArrived by private vehicle. Historian: patient. Accompanied by spouse (in car). ( [facility] and was called by her PCP and was told her Magnesium was so low she needed tohave an IV. The pt sees Dr Wagner in [place]. Pt has hx of Parkinson's dx.).Triage time: 19:48 11/29/2020. Acuity: LEVEL 3.Chief Complaint: ABNORMAL LAB (Mag was low). She was instructed by their PCP to come to the ED forevaluation.Alert. 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 --19:55 11/29/20 Denita Odell RAlineNAline19:48 11/29/20. BP: 126/73. MAP: 90. HR: 80. RR: 20. O2 saturation: 99% on room air. Temp: 97.5 F(temporal). Pain level now: 0/10. --19:55 11/29/20 Denita Odell RXaviSEPSIS SCREEN: SIRS SCREEN NEGATIVE. SEPSIS SCREEN NEGATIVE. No suspected or confirmedsigns of infection present. --19:55 11/29/20 Denita Odell R.N.Weight: 63.5 kg stated. Height/Length: 61 inches Per Patient. BMI: 26.5. --19:47 11/29/20 Denita Odell R.N.MedicationsVitamin B-12 Oral. --20:07 11/29/20 Stacey Carrillo R.N. Azelastine HCl Nasal. --20:07 11/29/20 Stacey Carrillo R.N. Vitamin D Oral. --20:07 11/29/20 Stacey Carrillo R.N. rOPINIRole HCl Oral (Tablet 0.25 mg) 1 t ablet, 3x a day. --20:08 11/29/20 Stacey Carrillo R.N. Multivitamins Oral. --20:08 11/29/20 Stacey Carrillo R.N. Escitalopram Oxalate Oral 10 mg, daily. --20:08 11/29/20 Stacey Carrillo R.N. Carbidopa-Levodopa Oral 25/100 mg, daily. --20:09 11/29/20 Stacey Carrillo R.N.AllergiesPenicillins. --19:56 11/29/20 Denita Odell R.N.PROBLEMS: 2 Clinical Report - Nurses [facility] Emergency Department [address] [place] [address] Phone #: ext- [phone] 11/29/2020 19:40 Patient: JOAO BOLTON Sex: F : 1940 Age: 80yParkinson's Disease. --19:57 11/29/20 Denita Odell R.N.Medication/allergy information source: the patient. --19:55 11/29/20 Denita Odell R.N.ADDITIONAL SURGERIES:Cholecystectomy.Hysterectomy.Rib Removal. --19:57 11/29/20 Denita Odell R.N.HistorySOCIAL HX: Never smoker. No alcohol use or drug use. She was offered HIV testing but declined.Patient education was provided. She was offered hepatitis C testing but declined. Patient education wasprovided. She has not traveled outside the [place]Infectious disease exposure: No infectious disease exposure. (COVID screen negative, pt was vaccinatedfor COVID). Patient is not a known carrier of tuberculosis, hepatitis, HIV, MRSA or VRE. Patient is not aknown carrier of CRE.SELF HARM ASSESSMENT: Self harm assessment was performed. The patient answered "no" to thequestion(s) "Do you have thoughts of harming or killing yourself?", "Do you have a plan for harming orkilling yourself?" and "Have you recently had thoughts about harming or killing others?".ABUSE ASSESSMENT: Abuse assessment. The patient had positive responses to the question(s) "Do youfeel safe in your home?" (yes). Abuse denied. No suspicion of abuse. No report of abuse.NUTRITIONAL RISK ASSESSMENT: The nutritional risk assessment revealed no deficiencies.FUNCTIONAL ASSESSMENT: Functional assessment: no impairments noted.LEARNING NEEDS ASSESSMENT: The learning needs assessment revealed no barriers.FALL RISK ASSESSMENT: Fall risk assessment completed. Risk factors identified include patientmedications, age greater than 65 years and history of fall. Fall interventions initiated. Side rails up x2.Patient identified as a fall risk by chart flagged. Instructed not to get up without assistance. Verbalizesunderstanding.SKIN INTEGRITY ASSESSMENT: Skin integrity risk assessment completed. No skin integrity riskidentified. --19:55 11/29/20 Denita Odell R.N.FAMILY HX:Mother: Congestive Heart Failure. --20:05 11/29/20 Neptali Thompson.InterventionsIdentification band on patient. --19:55 11/29/20 Denita Odell R.N.PHYSICAL ASSESSMENT 3 Clinical Report - Nurses [facility] Emergency Department [address] [place] [address] Phone #: ext- [phone] 11/29/2020 19:40 Patient: JOAO BOLTON Sex: F : 1940 Age: 80y Ambulatory to room. GENERAL / NEURO / PSYCH: Alert. Oriented X 4. Appears in no acute distress. ( fatigue). HEENT: Pupils equal, round and reactive to light. No facial asymmetry noted. Mucous membranes are pink. RESPIRATORY: Respirations not labored. Chest nontender. Breath sounds within normal limits. CVS: Capillary refill less than 2 seconds. Pulses within normal limits. GI / : Abdomen soft and nontender and normal bowel sounds. SKIN: Skin intact. Skin is warm and dry. Normal skin turgor. --20:12 11/29/20 Jenn Kothari RXaviNURSING PROGRESS NOTESMonitoring of patient in place. Patient gowned. Reassurance given. Three patient identifiers checked.Call light placed in reach. Side rails up x 2. Bed p laced in lowest position. Brakes of bed on. Patientready for evaluation- ED physician notified. --19:55 11/29/20 Denita Odell R.N. 20:35 11/29/2020 Site #1 started via IV in the right antecubital space with an 20g angiocath, with aseptic technique; one attempt. Saline lock flushed with 10 mL saline. --20:40 11/29/20 Stacey Carrillo R.N. 20:40 11/29/2020 Started 2 gm of Magnesium Sulfate Drip IV in bag #1 50 mL; at 50 mL/hr over 1 hour(s) via site #1. via IV pump. Allergies verified and confirmed 5 rights. IV patency established. IV site checked: no pain, redness, or swelling. IV flushed thoroughly pre- and post- medication administration. Information reviewed with patient. Verbalizes understanding. --20:40 11/29/20 Stacey Carrillo R.N. 20:59 11/29/2020 Site #1 removed upon discharge. Catheter intact. Manual pressure and bandage applied. --20:59 11/29/20 Jenn Kothari R.N. 20:59 11/29/2020 Magnesium Sulfate Drip IV via IV site #1 Discontinued: bag #1 discontinued. Total amount infused: 25 mL. IV patency established. IV site checked: no pain, redness, or swelling. IV flushed thoroughly. --20:59 11/29/20 Jenn Kothari R.N.DISPOSITION / DISCHARGE Condition at departure: improved and stable. No learning barriers present. Discharge instructions provided and reviewed with the patient. Patient verbalized understanding. Written instructions provided in Lebanese. The patient was discharged by the physician. She was discharged home and accompanied by spouse. She left ambulatory and via private vehicle. Spouse driving. --20:58 11/29/20 Jenn Kothari R.N. 20:58 11/29/20. BP: 122/77. MAP: 92. HR: 76. RR: 18. O2 saturation: 97%. Temp: 97.1 F. Pain level now: 0/10. --20:58 11/29/20 Jenn Kothari R.N.Locked/Released at 11/29/2020 20:59 by Jenn Kothari R.N. 4 Clinical Report - Nurses [facility] Emergency Department [address] [place] [address] Phone #: ext- [phone] 11/29/2020 19:40 Patient: JOAO BOLTON Sex: F : 1940 Age: 80y Name Value Range Interpretation Code Description Data Tricia rce(s) Supporting Document(s) ID Date Data Source [id number] 11/29/2020 07:42:00 PM EDT [facility] 1 Clinical Report - Physicians/Mid Levels [facility] Emergency Department [address] [place] [address] Phone #: ext- [phone] 11/29/2020 19:40 Patient: JOAO BOLTON [facility]#: [id number] Sex: F : 1940 Age: 80y Time Seen: 19:52 11/29/2020. Arrived- By private vehicle. Historian- patient.HISTORY OF PRESENT ILLNESS Chief Complaint: ABNORMAL LAB. This started today and is still present. At its maximum, severity described as severe. When seen in the E.D., severity described as severe. Modifying factors. Not worsened by anything. Not relieved by anything. No headache or muscle aches. She has had mild fatigue (chronic). Denies sleep problem. No decreased urine output. (She had routine blood work done today for preop clearance, and was told her magnesium was low. No new complaints, worsening fatigue or palpitations. She was told she may be at risk for seizures. Denies any muscle spasms). Similar symptoms previously. None. Recent medical care: Not recently seen/assessed.REVIEW OF SYSTEMSNo fever, sore throat, sinus drainage, cough or difficulty breathing. No chest pain, abdominal pain,nausea, vomiting or diarrhea. No difficulty with urination, skin rash, back pain, headache or blackouts.No muscle aches, weight loss, double vision, palpitations or dizziness . No headache. All other systemsreviewed and are negative.PAST HISTORYSee nurses notes. Problems: Parkinson's Disease. Additional Surgeries: Cholecystectomy. Hysterectomy. Medications: Carbidopa-Levodopa Oral 25/100 mg, daily. Escitalopram Oxalate Oral 10 mg, daily. Multivitamins Oral. rOPINIRole HCl Oral (Tablet 0.25 mg) 1 tablet, 3x a day. Vitamin D Oral. Azelastine HCl Nasal. Vitamin B-12 Oral. 2 Clinical Report - Physicians/Mid Levels [facility] Emergency Department [address] [place] [address] Phone #: ext- [phone] 11/29/2020 19:40 [id number] Sex[facility] : 1940 Age: 80y Allergies: Penicillins.SOCIAL HISTORYNever smoker. No alcohol use.FAMILY HISTORYMother: Congestive Heart Failure.ADDITIONAL NOTESThe nursing notes have been reviewed.PHYSICAL EXAMVital Signs: 11/29/2020 19:48 BP: 126/73. MAP: 90. HR: 80. RR: 20. O2 saturation: 99% on room air.Temp: 97.5 F. Pain level now: 0/10.Appearance: Alert. No acute distress.Eyes: Pupils equal, round and reactive to light. Eyes normal inspection. No pale conjunctivae.ENT: Ears normal. Nose n ormal. Pharynx normal.Neck: Normal inspection. Neck supple.CVS: Normal heart rate and rhythm. Heart sounds normal.Respiratory: No respiratory distress. Breath sounds normal.Abdomen: No visible injury.Back: Normal inspection.Skin: Skin warm and dry. Normal skin color. No rash.Extremities: Extremities exhibit normal ROM. No lower extremity edema.Neuro: Oriented X 3. No motor deficit. No sensory deficit. Reflexes normal. (slight resting tremor tohands).LABS, X-RAYS, AND EKGEKG: EKG time: 20:07 11/29/2020. Rate: 80. Occasional ectopic beats. Premature ventricularcontractions. Normal P waves. Left atrial enlargement. LVH. Normal axis. Normal ST and T wavesand QT. Prior EKG unavailable. The study has been interpreted contemporaneously by me.Interpretation time: 20:08 11/29/2020.Laboratory Tests: BMP: (DEANDRE: 11/29/2020 20:13) ( MsgRcvd 11/29/2020 20:48) Final results Test Result Flag Units (Reference) BASIC METABOLIC PANEL BASIC METABOLIC PANEL SODIUM 137 mEq/L (134 - 153) POTASSIUM 4.1 mEq/L (3.6 - 5.0) CHLORIDE 104 mEq/L (98 - 107) CO2 23 MEQ/L (22 - 30) GLUCOSE 101 H MG/DL (70 - 99) BUN 17 MG/DL (7 - 21) CREATININE 0.9 MG/DL (0.7 - 1.5) BUN/CREAT 19 (8 - 27) 3 Clinical Report - Physicians/Mid Levels [facility] Emergency Department [address] [place] [address] Phone #: ext- [phone] 11/29/2020 19:40 Patient: JOAO BOLTON Sex: F : 1940 Age: 80y CALCIUM 9.1 MG/DL (8.4 - 10.2) ANION GAP 10.0 mmol/L (8.0 - 16.0) AGE 80 yrs AFR AMER GFR >60 NON-AA GFR >60 mL/min Male GFR I nterprentation 20-49 yrs >60 mL/min Normal 50-59 yrs >56 mL/min Normal 60-69 yrs >49 mL/min Normal 70-79yrs >42 mL/min Normal 80 and above >35 mL/min Normal Female GFR Interpretation 20-39 yrs >60 mL/min Normal 40-49 yrs >58 mL/min Normal 50-59 yrs >51 mL/min Normal 60-69 yrs >45 mL/min Normal 70-79 yrs >39 mL/min Normal 80 and above >32 mL/min Normal CBC w Diff: (DEANDRE: 11/29/2020 20:13) ( MsgRcvd 11/29/2020 20:22) Final results Test Result Flag Units (Reference) CBC W/AUTOMATED DIFF COMPLETE BLOOD COUNT WBC 3.9 L 10/uL (4.2 - 11.0) RBC 3.44 L 10/uL (4.20 - 5.40) HEMOGLOBIN 10.6 L g/dL (12.0 - 16.0) HEMATOCRIT 32.6 L % (37.0 - 47.0) MCV 94.8 fL (81.0 - 101) MCH 30.8 pg (27.0 - 34.0) MCHC 32.5 g/dL (31.0 - 36.0) RDW 12.8 % (11.5 - 14.5) PLATELETS 142 L 10/uL (150 - 450) MPV 10.5 H fL (7.4 - 10.4) NEUT 63.0 % (37.0 - 80.0) LYMPH 20.7 L % (25.0 - 40.0) MONO 11.7 H % (3.0 - 8.0) EOS 3.8 % (0.0 - 7.0) BASO 0.5 % (0.0 - 2.5) %IG 0.3 H % (0.0 - 0.0) %NRBC 0.0 % (0.0 - 0.0) #NEUT 2.47 10/uL (2.00 - 6.90) #LYMPH 0.81 10/uL (0.60 - 3.40) #MONO 0.46 10/uL (0.00 - 0.90) #EOS 0.15 10/uL (0.00 - 0.70) #BASO 0.02 10/uL (0.00 - 0.20) #IG 0.01 10/uL (0.00 - 0.10) #NRBC 0.00 10/uL (0.00 - 0.00) MANUAL DIFF NOT INDICATED RBC MORPH NOT INDICATED Magnesium: (DEANDRE: 11/29/2020 20:13) ( MsgRcvd 11/29/2020 20:45) Final results Test Result Flag Units (Reference) MAGNESIUM 1.9 MG/DL (1.7 - 2.2).PROGRESS AND PROCEDURESCourse of Care: 20:06 11/29/20. Laboratories done earlier today showed normal renal function butmagnesium of 0.7 20:49 11/29/20. Patient has no clear evidence of symptoms consistent with hypomagnesemia. PVC's june 11 Clinical Report - Physicians/Mid Levels [facility] Emergency Department [address] [place] [address] Phone #: [phone] 11/29/2020 19:40 ---- [id number] Sex[facility] F : 1940 Age: 80y be completely unrelated and not associated with her complaints. Patient/family counseled. Disposition: Discharged. Condition: stable.CLINICAL IMPRESSION Occasional PVC's.INSTRUCTIONS Warnings: GENERAL WARNINGS: Return or contact your physician immediately if your condition worsens or changes unexpectedly, if not improving as expected, or if other problems arise. Your Current Medications: Your current home medications have been reviewed. CONTINUE TAKING THE FOLLOWING MEDICATIONS: Azelastine HCl Nasal. Carbidopa-Levodopa Oral : 25/100 mg daily. Escitalopram Oxalate Oral : 10 mg daily. Multivitamins Oral. rOPINIRole HCl Oral : Tablet 0.25 mg, 1 tablet 3x a day. Vitamin B-12 Oral. Vitamin D Oral. Follow- up: Follow up with your healthcare provider. Understanding of the discharge instructions verbalized by patient.(Electronically signed by Neptali Thompson 11/29/2020 23:07) Name Value Range Interpretation Code Description Data Tricia rce(s) Supporting Document(s) ID Date Data Source [id number] 11/29/2020 08:13:00 PM EDT [facility] ([facility]) Name Value Range Interpretation Code Description Data Tricia rce(s) Supporting Document(s) Basic Metabolic Pane Laboratory test result [facility] ([facility]) BASIC METABOLIC PANEL Sodium 137 meq/L 134-153 [facility] ([facility]) Potassium 4.1 meq/L 3.6-5.0 [facility] ([facility]) Chloride 104 meq/L 98-107 [facility] ([facility]) Co2 23 meq/L 22-30 [facility] ([facility]) BUN 17 mg/dL 7-21 [facility] ([facility]) Glucose 101 mg/dL 70-99 Above high normal [facility] ([facility]) BUN/Creat 19 8-27 [facility] ([facility]) Creatinine 0.9 mg/dL 0.7-1.5 [facility] ([facility]) Calcium 9.1 mg/dL 8.4-10.2 [facility] ([facility]) Anion Gap 10.0 mmol/L 8.0-16.0 [facility] ([facility]) Age 80 yrs [facility] ([facility]) Afr Amer GFR Laboratory test result [facility] ([facility]) Non-Aa GFR Laboratory test result [facility] ([facility]) Male GFR Interprentation 20-49 yrs >60 mL/min Normal 50-59 yrs >56 mL/min Normal 60-69 yrs >49 mL/min Normal 70-79yrs >42 mL/min Normal 80 and above >35 mL/min Normal Female GFR Interpretation 20-39 yrs >60 mL/min Normal 40-49 yrs >58 mL/min Normal 50-59 yrs >51 mL/min Normal 60-69 yrs >45 mL/min Normal 70-79 yrs >39 mL/min Normal 80 and above >32 mL/min Normal ID Date Data Source [id number] 11/29/2020 08:13:00 PM EDT [facility]) Name Value Range Interpretation Code Description Data Tricia rce(s) Supporting Document(s) Magnesium [Mass/volume] in Serum or Plasma 1.9 mg/dL 1.7-2.2 [facility] ([facility]) ID Date Data Source [id number] 11/29/2020 08:13:00 PM EDT [facility] ([facility]) Name Value Range Interpretation Code Description Data Tricia rce(s) Supporting Document(s) CBC W/Automated Diff Laboratory test result [facility] ([facility]) COMPLETE BLOOD COUNT WBC 3.9 10^3/uL 4.2-11.0 Below low normal [facility] ([facility]) RBC 3.44 10^6/uL 4.20-5.40 Below low normal [facility] ([facility]) Hematocrit 32.6 % 37.0-47.0 Below low normal [facility] ( [facility]) Hemoglobin 10.6 g/dL 12.0-16.0 Below low normal [facility] ( [facility]) MCV 94.8 fL 81.0-101 [facility] ([facility]) MCH 30.8 pg 27.0-34.0 [facility] ([facility]) MCHC 32.5 g/dL 31.0-36.0 [facility] ([facility]) RDW 12.8 % 11.5-14.5 [facility] ([facility]) MPV 10.5 fL 7.4-10.4 Above high normal [facility] ([facility]) Platelets 142 10^3/uL 150-450 Below low normal [facility] ([facility]) Lymph 20.7 % 25.0-40.0 Below low normal [facility] ( [facility]) Neut 63.0 % 37.0-80.0 [facility] ([facility]) Eos 3.8 % 0.0-7.0 [facility] ([facility]) [place] 11.7 % 3.0-8.0 Above high normal [facility] ([facility]) Baso 0.5 % 0.0-2.5 [facility] ([facility]) %Ig 0.3 % 0.0-0.0 Above high normal [facility] ([facility]) #Neut 2.47 10^3/uL 2.00-6.90 [facility] ([facility]) %NRBC 0.0 % 0.0-0.0 [facility] ([facility]) #Lymph 0.81 10^3/uL 0.60-3.40 [facility] ([facility]) #Eos 0.15 10^3/uL 0.00-0.70 [facility] ([facility]) #[place] 0.46 10^3/uL 0.00-0.90 [facility] ([facility]) #Ig 0.01 10^3/uL 0.00-0.10 [facility] ([facility]) #NRBC 0.00 10^3/uL 0.00-0.00 [facility] ([facility]) #Baso 0.02 10^3/uL 0.00-0.20 [facility] ([facility]) Manual Diff Laboratory test result M [facility] ([facility]) RBC Morph Laboratory test result [facility] ([facility]) ID Date Data Source [id number] 11/29/2020 08:48:00 PM EDT [facility] Name Value Range Interpretation Code Description Data Tricia rce(s) Supporting Document(s) BASIC METABOLIC PANEL [facility] BASIC METABOLIC PANEL Sodium [Moles/volume] in Serum or Plasma 137 mEq/L 134 - 153 [facility] Potassium [Moles/volume] in Serum or Plasma 4.1 mEq/L 3.6 - 5.0 [facility] Chloride [Moles/volume] in Serum or Plasma 104 mEq/L 98 - 107 [facility] Carbon dioxide, total [Moles/volume] in Serum or Plasma 23 MEQ/L 22 - 30 [facility] Glucose [Mass/volume] in Serum or Plasma 101 MG/DL 70 - 99 H [facility] BUN 17 MG/DL 7 - 21 [facility] Creatinine [Mass/volume] in Serum or Plasma 0.9 MG/DL 0.7 - 1.5 [facility] BUN/CREAT 19 8 - 27 [facility] Calcium [Mass/volume] in Serum or Plasma 9.1 MG/DL 8.4 - 10.2 [facility] Anion gap 3 in Serum or Plasma 10.0 mmol/L 8.0 - 16.0 [facility] 80 [facility] >[facility] NON-AA GFR >60 mL/min [facility] Male GFR Inter prentation 20-49 yrs >60 mL/min Normal 50-59 yrs >56 mL/min Normal 60-69 yrs >49 mL/min Normal 70-79yrs >42 mL/min Normal 80 and above >35 mL/min Normal Female GFR Interpretation 20-39 yrs >60 mL/min Normal 40-49 yrs >58 mL/min Normal 50-59 yrs >51 mL/min Normal 60-69 yrs >45 mL/min Normal 70-79 yrs >39 mL/min Normal 80 and above >32 mL/min Normal ID Date Data Source [id number] 11/29/2020 08:45:00 PM EDT [facility] Name Value Range Interpretation Code Description Data Tricia rce(s) Supporting Document(s) Magnesium [Mass/volume] in Serum or Plasma 1.9 MG/DL 1.7 - 2.2 [facility] ID Date Data Source [id number] 11/29/2020 08:22:00 PM EDT [facility] Name Value Range Interpretation Code Description Data Tricia [facility](s) Supporting Document(s) CBC W/AUTOMATED DIFF [facility] COMPLETE BLOOD COUNT Leukocytes [#/volume] in Blood by Automated count 3.9 10^3/uL 4.2 - 1 1.0 L [facility] Erythrocytes [#/volume] in Blood by Automated count 3.44 10^6/uL 4. 20 - 5.40 L [facility] Hemoglobin [Mass/volume] in Blood 10.6 g/dL 12.0 - 16.0 L [facility] Hematocrit [Volume Fraction] of Blood by Automated count 32.6 % 3 7.0 - 47.0 L [facility] Erythrocyte mean corpuscular volume [Entitic volume] by Auto mated count 94.8 fL 81.0 - 101 [facility] Erythrocyte mean corpuscular hemoglobin [Entitic mass] by Automated count 30.8 pg 27.0 - 34.0 [facility] Erythrocyte mean corpuscular hemoglobin concentration [Mass/volume] by Automated count 32.5 g/dL 31.0 - 36.0 [facility] Erythrocyte distribution width [Ratio] by Automated count 12.8 % 11.5 - 14.5 [facility] Platelets [#/volume] in Blood by Automated count 142 10^3/uL 150 - 45 0 L [facility] Platelet mean volume [Entitic volume] in Blood by Automated count 10.5 fL 7.4 - 10.4 H [facility] Neutrophils/100 leukocytes in Blood by Automated count 63.0 % 37. 0 - 80.0 [facility] Lymphocytes/100 leukocytes in Blood by Manual count 20.7 % 25.0 - 40.0 L [facility] Monocytes/100 leukocytes in Blood by Automated count 11.7 % 3.0 - 8.0 H [facility] Eosinophils/100 leukocytes in Blood by Automated count 3.8 % 0.0 - 7.0 [facility] Basophils/100 leukocytes in Blood by Automated count 0.5 % 0.0 - 2.5 [facility] %IG 0.3 % 0.0 - 0.0 H [facility] %NRBC 0.0 % 0.0 - 0.0 [facility] al Neutrophils [#/volume] in Blood by Automated count 2.47 10^3/uL 2.00 - 6.90 [facility] Lymphocytes [#/volume] in Blood by Automated count 0.81 10^3/uL 0.60 - 3.40 [facility] Monocytes [#/volume] in Blood by Automated count 0.46 10^3/uL 0.00 - 0.90 [facility] Eosinophils [#/volume] in Blood by Automated count 0.15 10^3/uL 0.00 - 0.70 [facility] Basophils [#/volume] in Blood by Automated count 0.02 10^3/uL 0.00 - 0.20 [facility] #IG 0.01 10^3/uL 0.00 - 0.10 [facility] #NRBC 0.00 10^3/uL 0.00 - 0.00 [facility] MANUAL DIFF NOT INDICATED [facility] RBC MORPH NOT INDICATED [facility] ID Date Data Source [id number] 11/29/2020 12:05:00 PM EDT [facility] ([facility]) Name Value Range Interpretation Code Description Data Tricia rce(s) Supporting Document(s) Magnesium [Mass/volume] in Serum or Plasma 2.1 mg/dL 1.8-2 .4 Normal (applies to non-numeric results) [facility] ([facility]) --- 12/18/20 1055 --- MAGNES previously reported as: 0.7 *L MG/DL ID Date Data Source [id number] 11/29/2020 12:05:00 PM EDT [facility] ([facility]) Name Value Range Interpretation Code Description Data Tricia rce(s) Supporting Document(s) Red Blood Count 3.53 10 4.00-5.40 Below low normal [facility] ([facility]) White Blood Count 3.9 10 4.0-10.0 Below low normal M [facility] ([facility]) Hematocrit 34.7 % 36.0-47.0 Below low normal [facility] ( [facility]) Hemoglobin 10.8 g/dL 12.0-15.5 Below low normal [facility] ( [facility]) Mean Corpuscular Hemoglobin 30.6 pg 27.0-33.0 Norm al (applies to non-numeric results) [facility] ([facility]) Mean Corpuscular Volume 98.3 fl 80.0-96.0 Above high normal [facility] ([facility]) Red Cell Distribution Width 12.7 % 11.5-14.5 Norm al (applies to non-numeric results) [facility] ([facility]) Platelet Count, Automated 147 10 150-450 Below low normal [facility] ([facility]) Mean Corpuscular HGB Conc 31.1 g/dL 32.0-36.5 Below low normal [facility] ([facility]) Lymph % 14.7 % 24.0-44.0 Below low normal [facility] ( [facility]) Neutrophils % 70.0 % 36.0-66.0 Above high normal [facility] ([facility]) Eos % 2.6 % 0.0-3.0 Normal (applies to non-numeric resul ts) [facility] ([facility]) [place] % 11.4 % 2.0-8.0 Above high normal [facility] ([facility]) Nucleated Red Blood Cell % 0.0 % 0-0 Normal (applies to n on-numeric results) [facility] ([facility]) Immature Granulocyte % 0.3 % 0-3.0 Normal (applies to non-n umeric results) [facility] ([facility]) Baso % 1.0 % 0.0-1.0 Normal (applies to non-numeric resul ts) [facility] ([facility]) Neutrophils # 2.7 10 1.5-8.5 Normal (applies to non-numeric re sults) [facility] ([facility]) Lymph # 0.6 10 1.5-5.0 Below low normal [facility] ( [facility]) [place] # 0.4 10 0.0-0.8 Normal (applies to non-numeric resul ts) [facility] ([facility]) Eos # 0.1 10 0.0-0.5 Normal (applies to non-numeric resul ts) [facility] ([facility]) Baso # 0.0 10 0.0-0.2 Normal (applies to non-numeric resul ts) [facility]) ID Date Data Source [id number] 11/29/2020 12:05:00 PM EDT [facility] ([facility]) Name Value Range Interpretation Code Description Data Tricia rce(s) Supporting Document(s) Blood Urea Nitrogen 15 mg/dL 7-18 Normal (applies to non-nume jillian results) [facility] ([facility]) Glucose, Fasting 79 mg/dL 70-100 Normal (applies to non-numeric results) [facility] ([facility]) Creatinine For GFR 1.04 mg/dL 0.55-1.30 Normal (applies to non -numeric results) [facility] ([facility]) Glomerular Filtration Rate 54.6 Normal (applies to n on-numeric results) [facility] ([facility]) <content>Units are mL/min/1.73 m2</content>
<content></content>
<content>Chronic Kidney Disease Staging per NKF:</content>
<content></content>
<content>Stage I & II GFR >=60 Normal to Mildly Decreased</content>
<content>Stage III GFR 30- 59 Moderately Decreased</content>
<content>Stage IV GFR 15-29 Severely Decreased</content>
<content>Stage V GFR <15 Very Little GFR Left</content>
<content>ESRD GFR <15 on AERODYNAMICIST</content>
<content></content> Sodium Level 139 meq/L 136-145 Normal (applies to non-numeric res ults) [facility] ([facility]) Potassium Serum 4.3 meq/L 3.5-5.1 Normal (applies to non-numeric results) [facility] ([facility]) Carbon Dioxide Level 29 meq/L 21-32 Normal (applies to non-num sal results) [facility] ([facility]) Chloride Level 106 meq/L 98-107 Normal (applies to non-numeric r esults) [facility] ([facility]) Anion Gap 4 meq/L 8-16 Below low normal [facility] ( [facility]) Calcium Level 8.6 mg/dL 8.8-10.2 Below low normal [facility] T ([facility]) ID Date Data Source [id number] 11/29/2020 10:57:00 AM EDT [facility] ([facility]) Name Value Range Interpretation Code Description Data Tricia rce(s) Supporting Document(s) EKG Laboratory test result [facility] ([facility]) ID Date Data Source [id number] 05/15/2020 10:34:00 PM EDT [facility] Name Value Range Interpretation Code Description Data Tricia rce(s) Supporting Document(s) COVID-19 RT-PCR COMPUTER SYSTEMS MANAGER SWAB Not Detected Not Detected [facility] A not detected (negative) test result fo r this test means that SARS-CoV-2 RNA was not present in the specimen above the limit ofdetection. Laboratory test results should always be considered in thecontext of clinical observations and epidemiological data in making afinal diagnosis and patient management decisions. Results will bereported to government agencies as required.This test has received Emergency Use Authorization (EUA). We will continue to follow federal and state requirements for COVID-19 reporting. This test has been authorized only for the detection of RNAfrom SARS-CoV-2 virus and diagnosis of SARS-CoV-2 virus infection, notfor any other viruses or pathogens. This test is only authorized for the duration of the declaration that circumstances exist justifying the authorization of the emergency use of in vitro diagnostic tests for detection of SARS-CoV-2 virus and/or diagnosis of SARS-CoV-2 virusinfection under section 564(b)(1) of the Act, 21 U.S.C. section 360bbb-3(b)(1), unless the authorization is terminated or revoked sooner. We will continue to follow federal and state requirements for both notification of results and any confirmatory testing that is required by another agency. This test was developed and its performance characteristics determined by [employer] and verified at [facility]. It has not been cleared or approved by the U.S. Food and Drug Administration for diagnostic use. This test has been authorized by FDA under an EUA for use by authorized laboratories. Results should be used in conjunction with clinical findings, and should not form the sole basis for a diagnosis or treatment decision. Methods: SARS-CoV-2 Multiplex RT-PCR Assay ID Date Data Source [id number] 05/14/2020 09:00:00 AM EDT [facility] Name Value Range Interpretation Code Description Data Tricia rce(s) Supporting Document(s) SARS-CoV-2 (COVID-19) N gene [Presence] in Respiratory specimen by MENDY with probe detection NEGATIVE [facility] This lab was ordered by Ramiro Lopez and reported by [facility]. ID Date Data Source [id number] 05/14/2020 12:00:00 AM EDT [facility] Name Value Range Interpretation Code Description Data Tricia rce(s) Supporting Document(s) Carestart Rapid COVID Antigen Test Negative [facility] This lab was reported by Ramiro mills. ID Date Data Source [id number] 11/15/2019 11:18:00 AM EDT [facility] ([facility], ) Name Value Range Interpretation Code Description Data Tricia rce(s) Supporting Document(s) Thiamine [Mass/volume] in Blood 95.1 nmol/L 66.5-200.0 [facility] ([facility], ) Specimen Comment: Test(s) [id number] E(Alpha Tocopherol); 836266- Specimen Comment: Vitamin E(Gamma Tocopherol); 031789-Fpgeltd B6; 596354- Specimen Comment: Vit. B1, Whole Blood; 638162-Andqfp, Serum; 819317- Specimen Comment: Mercury, Blood Specimen Comment: was developed and its performance characteristics Specimen Comment: determined by [facility]. It has not been cleared or approved Specimen Comment: by the Food and Drug Administration. Lead [Mass/volume] in Blood Laboratory test result 0-4 [facility] ([facility], ) <content>Analysis by inductively coupled plasma/mass</content>
<content>spectrometry (ICP/MS)</content>
<content>Environmental Exposure:</content>
<content>WHO Recommendation <20</content>
<content>Occupational Exposure:</content>
<content>OSHA Lead Std 40</content>
<content>ELLIOTT 30</content>
<content>.</content>
<content>Detection Limit = 1</content>
<content></content> Pyridoxine [Mass/volume] in Serum or Plasma 18.1 ug/L 2.0-32.8 [facility] ([facility], ) Specimen Comment: Test(s) [id number]-Rndskoz E(Alpha Tocopherol); 368984- Specimen Comment: Vitamin E(Gamma Tocopherol); 822887-Mhejdzy B6; 736082- Specimen Comment: Vit. B1, Whole Blood; 561849-Quxkvy, Serum; 497241- Specimen Comment: Mercury, Blood Specimen Comment: was developed and its performance characteristics Specimen Comment: determined by [facility]. It has not been cleared or approved Specimen Comment: by the Food and Drug Administration. Mercury [Mass/volume] in Serum or Plasma Laboratory test result 0.0-1 4.9 [facility] ([facility], ) <content>Environmental Exposure: <15.0< /content>
<content>Occupational Exposure:</content>
<content>ELLIOTT - Inorganic Mercury: 15.0</content>
<content>.</content>
<content>Detection Limit = 1.0</content>
<content>Performed at: - [facility]</content>
<content>[address], [place] [id number]</content>
<content>Play Reader: Carlie Lind MD, Phone: [phone]</content>
<content>Performed at: RN - [facility]</content>
<content>[address], [place] [id number]</content>
<content>Play Reader: Edita Dias MD, Phone: [phone]</content>
<content></content> Copper [Mass/volume] in Serum or Plasma 108 ug/dL 72-166 [facility] ([facility]) Detection Limit = 5 Ceruloplasmin [Mass/volume] in Serum or Plasma 22.1 mg/dL 19.0-39.0 [facility] ([facility]) Specimen Comment: Test(s) 297580-Gvyclty E(Alpha Tocopherol); 100969- Specimen Comment: Vitamin E(Gamma Tocopherol); 294550-Lvyocyl B6; 464288- Specimen Comment: Vit. B1, Whole Blood; 886687-Oqbzqa, Serum; 301817- Specimen Comment: Mercury, Blood Specimen Comment: was developed and its performance characteristics Specimen Comment: determined by [facility]. It has not been cleared or approved Specimen Comment: by the Food and Drug Administration. ID Date Data Source [id number] 11/15/2019 11:18:00 AM EDT [facility]) Name Value Range Interpretation Code Description Data Tricia rce(s) Supporting Document(s) Lyme Disease IgM Ab Quantitati Laboratory test result 0.00-0.79 [facility] ([facility]) <content>Negative <0.80</content >
<content>Equivocal 0.80 - 1.19</content>
<content>Positive >1.19</content>
<content>.</content>
<content>IgM levels may peak at 3-6 weeks post infection, then</content>
<content>gradually decline.</content>
<content></content> Lyme Disease IgG/IgM Antibodie Laboratory test result 0.00-0.90 [facility] ([facility]) <content>Negative <0.91</content >
<content>Equivocal 0.91 - 1.09</content>
<content>Positive >1.09</content>
<content></content> ID Date Data Source [id number] 11/15/2019 11:18:00 AM EDT [facility] ([facility]) Name Value Range Interpretation Code Description Data Tricia rce(s) Supporting Document(s) Vitamin E(Alpha Tocopherol) 8.6 mg/L 9.0-29.0 [facility]) Vitamin E(Gamma Tocopherol) 0.5 mg/L 0.5-4.9 [facility] ([facility]) Reference intervals for alpha and gamma- tocopherol determined from National Health and Nutrition Examination Survey, 9699-7484. Individuals with alpha-tocopherol levels less than 5.0 mg/L are considered vitamin E deficient. ID Date Data Source [id number] 11/15/2019 11:18:00 AM EDT [facility] ([facility]) Name Value Range Interpretation Code Description Data Tricia rce(s) Supporting Document(s) Calcidiol [Mass/volume] in Serum or Plasma 38.7 ng/mL 30.0-100.0 [facility] ([facility]) Cobalamin (Vitamin B12) [Mass/volume] in Serum or Plasma 412 pg/mL 2 47-911 [facility] ([facility]) VITAMIN B12 NORMAL RANGE NORMAL 247 - 911 PG/ML INDETERMINATE 211 - 246 PG/ML DEFICIENT LESS THAN 211 PG/ML Folate [Mass/volume] in Serum or Plasma 13.4 ng/mL [facility] ([facility]) FOLATE NORMAL RANGE NORMAL GREATER THAN 5.4 NG/ML INDETERMINATE 3.4-5.4 NG/ML DEFICIENT LESS THAN 3.4 NG/ML ID Date Data Source [id number] 11/15/2019 11:18:00 AM EDT [facility] ([facility]) Name Value Range Interpretation Code Description Data Tricia rce(s) Supporting Document(s) Glucose, Fasting 72 mg/dL 70-100 [facility] ([facility]) Blood Urea Nitrogen 16 mg/dL 7-18 [facility] ([facility]) Glomerular Filtration Rate Laboratory test result [facility] ([facility]) <content>Units are mL/min/1.73 m2</content>
<content></content>
<content>Chronic Kidney Disease Staging per NKF:</content>
<content></content>
<content>Stage I & II GFR >=60 Normal to Mildly Decreased</content>
<content>Stage III GFR 30- 59 Moderately Decreased</content>
<content>Stage IV GFR 15-29 Severely Decreased</content>
<content>Stage V GFR <15 Very Little GFR Left</content>
<content>ESRD GFR <15 on AERODYNAMICIST</content>
<content></content> Creatinine For GFR 0.87 mg/dL 0.55-1.30 [facility] ([facility], ) Potassium Serum 4.3 meq/L 3.5-5.1 [facility] ([facility]) Sodium Level 139 meq/L 136-145 [facility] ([facility]) Chloride Level 105 meq/L 98-107 [facility] ([facility]) Carbon Dioxide Level 30 meq/L 21-32 [facility] ([facility]) Anion Gap 4 meq/L 8-16 [facility] ([facility]) Calcium Level 9.3 mg/dL 8.8-10.2 [facility] ([facility]) Ast/Sgot 11 U/L 7-37 [facility] ([facility]) Alt/SGPT 9 U/L 12-78 [facility] ([facility]) Alkaline Phosphatase 70 U/L 45-117 [facility] ([facility]) Bilirubin,Total 0.4 mg/dL 0.2-1.0 [facility] ([facility]) Total Protein 7.5 GM/DL 6.4-8.2 [facility] ([facility]) Albumin 3.7 GM/DL 3.2-5.2 [facility] ([facility]) Albumin/Globulin Ratio 1.0 1.2-2.2 [facility] ([facility]) ID Date Data Source [id number] 11/15/2019 11:18:00 AM EDT [facility] ([facility]) Name Value Range Interpretation Code Description Data Tricia rce(s) Supporting Document(s) Hemoglobin 11.2 g/dL 12.0-15.5 [facility] ([facility]) White Blood Count 4.1 10 4.0-10.0 [facility] ([facility], ) Red Blood Count 3.68 10 4.00-5.40 [facility] ([facility]) Hematocrit 35.6 % 36.0-47.0 [facility] ([facility]) Mean Corpuscular Volume 96.7 fl 80.0-96.0 M [facility] ([facility]) Red Cell Distribution Width 11.7 % 11.5-14.5 [facility] ([facility]) Mean Corpuscular HGB Conc 31.5 g/dL 32.0-36.5 [facility] ([facility]) Mean Corpuscular Hemoglobin 30.4 pg 27.0-33.0 [facility] ([facility]) Platelet Count, Automated 191 10 150-450 [facility] ([facility]) Lymph % 15.7 % 24.0-44.0 [facility] ([facility]) Neutrophils % 72.3 % 36.0-66.0 [facility] ([facility]) [place] % 9.6 % 0.0-5.0 [facility] ([facility]) Eos % 1.5 % 0.0-3.0 [facility] ([facility]) Baso % 0.7 % 0.0-1.0 [facility] ([facility]) Nucleated Red Blood Cell % 0.0 % 0-0 [facility] ([facility]) Immature Granulocyte % 0.2 % 0-3.0 [facility] ([facility]) Neutrophils # 3.0 10 1.5-8.5 [facility] ([facility]) [place] # 0.4 10 0.0-0.8 [facility] ([facility]) Lymph # 0.6 10 1.5-5.0 [facility] ([facility]) Baso # 0.0 10 0.0-0.2 [facility] ([facility]) Eos # 0.1 10 0.0-0.5 [facility] ([facility]) ID Date Data Source [id number] 11/15/2019 11:18:00 AM EDT [facility] ([facility]) Name Value Range Interpretation Code Description Data Tricia rce(s) Supporting Document(s) Ammonia [Mass/volume] in Blood 26 uMOL/L [facility] ([facility]) Procedure Social History Code Duration Value Status Description Data Source(s ) Smoking 12/08/2020 08:29:54 AM EDT Never smoked tobacco (findi ng) completed Never smoked tobacco (finding) ROSANA (Raymond Blanco MD [facility]) Smoking 11/28/2020 12:00:00 AM EDT Patient has never smoked co mpleted Patient has never smoked [facility] ([facility]) Smoking 11/11/2020 07:37:15 AM EDT Never smoked tobacco (findi ng) completed Never smoked tobacco (finding) ROSANA (Raymond Blanco MD [facility]) Smoking 10/02/2020 07:02:31 AM EDT Never smoked tobacco (findi ng) completed Never smoked tobacco (finding) ROSANA (Raymond Blanco MD [facility]) Vital Signs ID Date Data Source [id number] Name Value Range Interpretation Code Description Data Source(s) Systolic blood pressure 138 mm[Hg] 138 mm[Hg] M [facility]ENT ([facility]) Diastolic blood pressure 82 mm[Hg] 82 mm[Hg] [facility] ([facility]) Body weight 145.00 [lb_av] 145.00 [lb_av] MEDEN T ([facility]) Body mass index (BMI) [Ratio] 27.1 kg/m2 27.1 k g/m2 [facility] ([facility]) Heart rate 77 /min 77 /min [facility] ([facility]) Respiratory rate 20 /min 20 /min [facility] ( [facility]) Body temperature 97.4 [degF] 97.4 [degF] [facility] ([facility]) Oxygen saturation in Arterial blood by Pulse oximetry 99 % 99 % [facility] ([facility]) Tyner body weight 105 [lb_av] 105 [lb_av] MEDEN T ([facility]) Body height 61.3 [in_i] 61.3 [in_i] [facility] ([facility]) 5'1.30" Body temperature 97.8 [degF] 97.8 [degF] [facility] ([facility]) Oxygen saturation in Arterial blood by Pulse oximetry 98 % 98 % [facility] Tyner body weight 105 [lb_av] 105 [lb_av] MEDEN T ([facility]) Systolic blood pressure 132 mm[Hg] 132 mm[Hg] M EDENT ([facility]) Diastolic blood pressure 86 mm[Hg] 86 mm[Hg] [facility] ([facility]) Body height 61.3 [in_i] 61.3 [in_i] [facility] ([facility]) 5'1.30" Body weight 140.38 [lb_av] 140.38 [lb_av] MEDEN T ([facility]) Body mass index (BMI) [Ratio] 26.3 kg/m2 26.3 k g/m2 [facility] ([facility]) Heart rate 78 /min 78 /min [facility] ([facility]) Respiratory rate 16 /min 16 /min [facility] ( [facility]) Respiratory rate 18 /min 18 /min [facility] ( [facility]) Systolic blood pressure 122 mm[Hg] 122 mm[Hg] M [facility]ENT ([facility]) Diastolic blood pressure 68 mm[Hg] 68 mm[Hg] [facility] ([facility]) Body height 61.3 [in_i] 61.3 [in_i] [facility] ([facility]) 5'1.30" Body weight 143.50 [lb_av] 143.50 [lb_av] MEDEN T ([facility]) Body mass index (BMI) [Ratio] 26.8 kg/m2 26.8 k g/m2 [facility] ([facility]) Heart rate 92 /min 92 /min [facility] ([facility]) Body temperature 98.1 [degF] 98.1 [degF] [facility] ([facility]) Oxygen saturation in Arterial blood by Pulse oximetry 98 % 98 % [facility] ([facility]) Tyner body weight 105 [lb_av] 105 [lb_av] MEDEN T ([facility]) Systolic blood pressure 126 mm[Hg] 126 mm[Hg] M EDENT ([facility]) Diastolic blood pressure 74 mm[Hg] 74 mm[Hg] [facility] ([facility]) Body height 61.3 [in_i] 61.3 [in_i] [facility] ([facility]) 5'1.30" Body weight 139.12 [lb_av] 139.12 [lb_av] SHIRA T ([facility]) Body mass index (BMI) [Ratio] 26.0 kg/m2 26.0 k g/m2 [facility] ([facility]) Heart rate 95 /min 95 /min [facility] ([facility]) Respiratory rate 18 /min 18 /min [facility] ( [facility]) Body temperature 97.9 [degF] 97.9 [degF] [facility] ([facility]) Oxygen saturation in Arterial blood by Pulse oximetry 99 % 99 % [facility] ([facility]) Tyner body weight 105 [lb_av] 105 [lb_av] SHIRA [place] ([facility]) Patient Treatment Plan of Care Planned Activity Planned Date Details Description Data Source (s) loteprednol etabonate 5 MG/ML Ophthalmic Suspension [L otemax] 11/20/2019 12:00:00 AM MANNY WAYNE (Raymond Blanco MD [facility])
[2020-12-26] MEDS: TETRACAINE 0.5% OPHTH SOLN 4ML OD SCH ×2 (12:18→12:26)
[2020-12-26] MEDS: CYCLOPENTOLATE 1% OPHTH SOLN 2 ML BTL OD SCH ×3 (12:27→12:50)
[2020-12-26] MEDS: FLURBIPROFEN 0.03% OPHTH SOLN 2.5 ML OD SCH ×3 (12:27→12:50)
[2020-12-26] MEDS: PHENYLEPHRINE 2.5% OPHTH SOL 2ML OD SCH ×3 (12:27→12:50)
[2020-12-26 14:55] VITALS: BP 175/78
--- NOTE | 2020-12-26 16:04 | ROOPDOC ---
[facility] Report Of Operation Report of Operation DATE OF PROCEDURE: 12/26/20 PREPROCEDURE DIAGNOSES: Cataract right eye. POSTPROCEDURE DIAGNOSES: Same. PROCEDURE PERFORMED: Cataract extraction with intraocular lens implantation right eye. SURGEON: Abhi Noyola MD PRESSER MACHINE: None ANESTHESIA: Local ESTIMATED BLOOD LOSS: None. COMPLICATIONS: None. SPECIMENS REMOVED: None DESCRIPTION OF PROCEDURE: The patient was brought to the operating room and prepped and draped in the usual sterile fashion and an eyelid speculum was inserted in the right eye. A paracentesis was made and the anterior chamber was inflated with non-preserved lidocaine. This was followed by injection of Viscoat. A groove was made in the temporal clear cornea which was tunneled forward with the crescent blade and the anterior chamber was entered with a 2.75 keratome. The cystotome was used to make an incision in the center of the capsule and a continuous curvilinear capsulorhexis was created. The lens was hydrodissected until it was found to rotate freely within the capsular bag. Phacoemulsification was then used to remove the lens in its entirety. Irrigation and aspiration were used to remove residual cortical material. The anterior chamber and capsular bag were reinflated with Provisc and a 19.5 diopter SN60AT lens was injected into the capsular bag using the Docena injector. The lens was dialed into place using the Sinskey hook. Irrigation and aspiration were used to remove residual viscoelastic. The wound was stromally hydrated until was found to be watertight and the eye was in an appropriate pressure. The eyelid speculum was removed from the eye and Maxitrol drops were placed over the right eye. The patient was transferred to the recovery room in stable condition and will follow up tomorrow. The total CDE was 23.45 ABHI NOYOLA MD Dec 26, 2020 16:04
== END 2020-12-26 15:10 | disposition home or self-care (01) ==
LOC: M SDC 11:57
PROVIDERS: ATTEND Ophthalmology
DX: H25.11 Age-related nuclear cataract, right eye (principal)
CPT/HCPCS: 66984; J2250; J3010; V2632

== ENCOUNTER → 2021-07-01 | Outpatient (CLI) | payer MEDICARE ==
[~2021-07-01] MED LIST changes: -DUOVISC (0.50ML VISCOAT/0.85ML PROVISC) OPHTH KIT As Ordered ONE; -LIDOCAINE 1% SDV 5ML VIAL As Ordered ONE; -LR 1,000 ML IV SCH; -MAXITROL OPHTH SUSP 5 ML As Ordered ONE; -MIDAZOLAM INJ 2MG/2ML VIAL (J2250 PER 1MG) As Ordered ONE; -fentaNYL 100 MCG/2 ML INJECTION (J3010) As Ordered ONE
[2021-07-01 12:13] LABS: BASO % 0.7 % (0.0-1.0); EOS # 0.3 10^3/uL (0.0-0.5); EOS % 5.5 % (0.0-3.0); HEMATOCRIT 38.2 % (36.0-47.0); HEMOGLOBIN 12.1 g/dl (12.0-15.5); LYMPH # 0.5 10^3/uL (1.5-5.0); MEAN CORPUSCULAR HGB CONC 31.7 g/dl (32.0-36.5); MEAN CORPUSCULAR VOLUME 94.8 fl (80.0-96.0); MONO # 0.6 10^3/uL (0.0-0.8); MONO % 10.2 % (2.0-8.0); NEUTROPHILS # 4.3 10^3/uL (1.5-8.5); NEUTROPHILS % 74.4 % (36.0-66.0); PLATELET COUNT, AUTOMATED 215 10^3/uL (150-450); RED BLOOD COUNT 4.03 10^6/uL (4.00-5.40); WHITE BLOOD COUNT 5.8 10^3/uL (4.0-10.0)
[2021-07-01 13:00] LABS: ALBUMIN 2.5 GM/DL (3.2-5.2); ALT/SGPT < 6 U/L (12-78); BILIRUBIN,TOTAL 0.6 MG/DL (0.2-1.0); BLOOD UREA NITROGEN 10 MG/DL (7-18); CALCIUM LEVEL 8.5 MG/DL (8.8-10.2); CARBON DIOXIDE LEVEL 29 MEQ/L (21-32); CHLORIDE LEVEL 101 MEQ/L (98-107); CREATININE FOR GFR 0.82 MG/DL (0.55-1.30); FREE T4 1.22 NG/DL (0.76-1.46); GLOMERULAR FILTRATION RATE > 60.0 (>39); GLUCOSE, FASTING 90 MG/DL (70-100); POTASSIUM SERUM 3.8 MEQ/L (3.5-5.1); SODIUM LEVEL 134 MEQ/L (136-145); TOTAL PROTEIN 6.6 GM/DL (6.4-8.2)
[2021-07-01 13:20] LABS: CK-MB VALUE MASS < 1.0 NG/ML (<3.6); CPK CREATINE PHOSPHOKINASE 92 U/L (26-192); MB/CK RELATIVE INDEX 1.09 (< OR =4)
== END ==
LOC: M LAB 11:37
PROVIDERS: ATTEND Nurse Practitioner Adult Health
DX: R53.83 Other fatigue (principal)

== ENCOUNTER → 2021-07-15 | Outpatient (CLI) | payer MEDICARE | LOC: M LABSMTC 09:10 | DX: Z20.822 Contact with and (suspected) exposure to COVID-19 (principal) ==

== ENCOUNTER → 2021-07-24 | Outpatient (REF) | payer MEDICARE ==
[2021-07-24 18:04] LABS: BLOOD UREA NITROGEN 12 MG/DL (7-18); CALCIUM LEVEL 8.3 MG/DL (8.8-10.2); CARBON DIOXIDE LEVEL 30 MEQ/L (21-32); CHLORIDE LEVEL 104 MEQ/L (98-107); GLOMERULAR FILTRATION RATE > 60.0 (>39); GLUCOSE, FASTING 86 MG/DL (70-100); POTASSIUM SERUM 4.1 MEQ/L (3.5-5.1); SODIUM LEVEL 138 MEQ/L (136-145)
== END ==
LOC: M LAB REF 17:29
PROVIDERS: ATTEND Student in an Organized Health Care Education/Training Program
DX: I42.9 Cardiomyopathy, unspecified (principal)

== ENCOUNTER → 2021-08-08 | Outpatient (REF) | payer MEDICARE ==
[2021-08-08 12:15] LABS: BASO % 0.8 % (0.0-1.0); EOS # 0.1 10^3/uL (0.0-0.5); EOS % 2.3 % (0.0-3.0); HEMATOCRIT 36.8 % (36.0-47.0); HEMOGLOBIN 11.7 g/dl (12.0-15.5); LYMPH # 0.7 10^3/uL (1.5-5.0); LYMPH % 18.1 % (24.0-44.0); MEAN CORPUSCULAR HEMOGLOBIN 29.3 pg (27.0-33.0); MEAN CORPUSCULAR HGB CONC 31.8 g/dl (32.0-36.5); MONO # 0.4 10^3/uL (0.0-0.8); MONO % 10.4 % (2.0-8.0); NEUTROPHILS # 2.7 10^3/uL (1.5-8.5); NEUTROPHILS % 68.1 % (36.0-66.0); PLATELET COUNT, AUTOMATED 169 10^3/uL (150-450); WHITE BLOOD COUNT 3.9 10^3/uL (4.0-10.0)
[2021-08-08 12:34] LABS: ALT/SGPT < 6 U/L (12-78); BILIRUBIN,TOTAL 0.6 MG/DL (0.2-1.0); BLOOD UREA NITROGEN 17 MG/DL (7-18); CALCIUM LEVEL 9.2 MG/DL (8.8-10.2); CARBON DIOXIDE LEVEL 27 MEQ/L (21-32); CHLORIDE LEVEL 102 MEQ/L (98-107); CREATININE FOR GFR 0.87 MG/DL (0.55-1.30); GLOMERULAR FILTRATION RATE > 60.0 (>39); GLUCOSE, FASTING 96 MG/DL (70-100); POTASSIUM SERUM 4.3 MEQ/L (3.5-5.1); SODIUM LEVEL 134 MEQ/L (136-145)
== END ==
LOC: M LAB REF 11:33
PROVIDERS: ATTEND Nurse Practitioner Family
DX: I25.10 Atherosclerotic heart disease of native coronary artery without angina pectoris (principal); I34.0 Nonrheumatic mitral (valve) insufficiency; G20 Parkinson's disease

== ENCOUNTER → 2021-12-01 | Outpatient (REF) | payer MEDICARE | LOC: M LAB REF 17:09 | PROVIDERS: ATTEND Physician Assistant | DX: N39.0 Urinary tract infection, site not specified (principal) ==

== ENCOUNTER → 2022-05-11 | Outpatient (CLI) | payer MEDICARE ==
[2022-05-11 19:55] LABS: BASO % 0.4 % (0.0-1.0); EOS # 0.1 10^3/uL (0.0-0.5); EOS % 2.7 % (0.0-3.0); HEMATOCRIT 34.3 % (36.0-47.0); HEMOGLOBIN 11.1 g/dl (12.0-15.5); LYMPH % 21.1 % (24.0-44.0); MEAN CORPUSCULAR HEMOGLOBIN 32.3 pg (27.0-33.0); MEAN CORPUSCULAR HGB CONC 32.4 g/dl (32.0-36.5); MEAN CORPUSCULAR VOLUME 99.7 fl (80.0-96.0); MONO # 0.6 10^3/uL (0.0-0.8); MONO % 11.9 % (2.0-8.0); NEUTROPHILS # 3.1 10^3/uL (1.5-8.5); NEUTROPHILS % 63.7 % (36.0-66.0); PLATELET COUNT, AUTOMATED 142 10^3/uL (150-450); RED BLOOD COUNT 3.44 10^6/uL (4.00-5.40); WHITE BLOOD COUNT 4.9 10^3/uL (4.0-10.0)
[2022-05-11 20:22] LABS: THYROID STIMULATING HORMONE 2.518 uIU/ML (0.55-4.78)
[2022-05-11 20:23] LABS: C REACTIVE PROTEIN QUANTITATIV < 0.40 MG/DL (<1.0)
[2022-05-11 20:24] LABS: IRON (FE) 61 UG/DL (50-170); VITAMIN B12 LEVEL 947 PG/ML (211-911)
[2022-05-11 20:25] LABS: ERYTHROCYTE SEDIMENTATION RATE 26 mm/hr (0-30); PERCENT SATURATION 19.2 % (13.2-45.0); TOTAL IRON BINDING CAPACITY 317 UG/DL (250-425)
[2022-05-11 20:26] LABS: FREE T4 0.76 NG/DL (0.89-1.76)
[2022-05-11 20:28] LABS: ALBUMIN 3.7 G/DL (3.2-5.2); ALKALINE PHOSPHATASE 78 U/L (46-116); ALT/SGPT 16 U/L (7.0-40); AST/SGOT 42 U/L (<34); BILIRUBIN,TOTAL 0.4 MG/DL (0.3-1.2); BLOOD UREA NITROGEN 20 MG/DL (9-23); CALCIUM LEVEL 9.1 MG/DL (8.3-10.6); CARBON DIOXIDE LEVEL 26 MMOL/L (20-31); CHLORIDE LEVEL 103 MMOL/L (98-107); CREATININE FOR GFR 0.89 MG/DL (0.55-1.30); GLOMERULAR FILTRATION RATE > 60.0 (>39); GLUCOSE, FASTING 96 MG/DL (74-106); POTASSIUM SERUM 4.1 MMOL/L (3.5-5.1); SODIUM LEVEL 138 MMOL/L (136-145)
== END ==
LOC: M PLALAB 15:31
PROVIDERS: ATTEND Nurse Practitioner Adult Health
DX: R53.1 Weakness (principal); D50.9 Iron deficiency anemia, unspecified

== ENCOUNTER → 2022-05-13 | Outpatient (CLI) | payer MEDICARE ==
[~2022-05-13] MED LIST changes: +ISOVUE-370 76% 100ML VIAL As Ordered ONE
== END ==
LOC: M RAD 13:14
PROVIDERS: ATTEND Nurse Practitioner Adult Health
DX: R79.1 Abnormal coagulation profile (principal)
CPT/HCPCS: 71275; Q9967

== ENCOUNTER → 2023-08-16 | Outpatient (CLI) | payer MEDICARE ==
[~2023-08-16] MED LIST changes: -ISOVUE-370 76% 100ML VIAL As Ordered ONE
== END ==
LOC: M PLAIMG 13:35
PROVIDERS: ATTEND Physician Assistant
DX: R42 Dizziness and giddiness (principal)

== ENCOUNTER → 2023-12-17 | Outpatient (REF) | payer MEDICARE ==
[2023-12-17 07:58] LABS: HEMATOCRIT 36.1 % (36.0-47.0); HEMOGLOBIN 11.6 g/dl (12.0-15.5); MEAN CORPUSCULAR HGB CONC 32.1 g/dl (32.0-36.5); MEAN CORPUSCULAR VOLUME 99.4 fl (80.0-96.0); PLATELET COUNT, AUTOMATED 140 10^3/uL (150-450); RED BLOOD COUNT 3.63 10^6/uL (4.00-5.40); WHITE BLOOD COUNT 4.3 10^3/uL (4.0-10.0)
[2023-12-17 08:29] LABS: ALBUMIN 3.7 G/DL (3.2-5.2); ALKALINE PHOSPHATASE 73 U/L (35-104); ALT/SGPT < 9 U/L (7.0-40); AST/SGOT 16 U/L (<34); BILIRUBIN,TOTAL 0.6 MG/DL (0.3-1.2); BLOOD UREA NITROGEN 20 MG/DL (9-23); CALCIUM LEVEL 9.3 MG/DL (8.3-10.6); CARBON DIOXIDE LEVEL 28 MMOL/L (20-31); CHLORIDE LEVEL 106 MMOL/L (98-107); CHOLESTEROL LEVEL 172 MG/DL (<200); CHOLESTEROL RISK RATIO 3.14 (<5); CREATININE FOR GFR 1.01 MG/DL (0.55-1.30); GLUCOSE, FASTING 100 MG/DL (74-106); HDL CHOLESTEROL 54.7 MG/DL (>40); LDL CHOLESTEROL 96.7 MG/DL (<100); NON-HDL-C 117.3 MG/DL; POTASSIUM SERUM 4.3 MMOL/L (3.5-5.1); SODIUM LEVEL 139 MMOL/L (136-145); TOTAL PROTEIN 7.5 G/DL (5.7-8.2); TRIGLYCERIDES LEVEL 103 MG/DL (<150)
== END ==
LOC: M LAB REF 07:42
PROVIDERS: ATTEND Nurse Practitioner Family
DX: I25.5 Ischemic cardiomyopathy (principal)

== ENCOUNTER 2024-05-01 11:24 | Inpatient (IN) | payer MEDICARE ==
[~2024-05-01] VITALS: Ht 154.9 cm; Wt 58.2 kg
[2024-05-01 12:41] LABS: BASO % 0.5 % (0.0-1.0); EOS # 0.3 10^3/uL (0.0-0.5); EOS % 3.8 % (0.0-3.0); HEMATOCRIT 25.8 % (36.0-47.0); LYMPH # 0.8 10^3/uL (1.5-5.0); LYMPH % 9.8 % (24.0-44.0); MEAN CORPUSCULAR HEMOGLOBIN 30.3 pg (27.0-33.0); MEAN CORPUSCULAR VOLUME 97.7 fl (80.0-96.0); MONO # 0.4 10^3/uL (0.0-0.8); MONO % 5.6 % (2.0-8.0); NEUTROPHILS # 6.3 10^3/uL (1.5-8.5); PLATELET COUNT, AUTOMATED 251 10^3/uL (150-450); RED BLOOD COUNT 2.64 10^6/uL (4.00-5.40); WHITE BLOOD COUNT 7.9 10^3/uL (4.0-10.0)
[2024-05-01] MEDS: NS 500 ML IV ONE (12:50)
[2024-05-01] MEDS: NS (Normal Saline) 0.9% 1,000 ML IV SCH (13:03)
[2024-05-01] MEDS: PANTOPRAZOLE 40MG VIAL IV ONE (13:03)
[2024-05-01 13:09] LABS: BLOOD UREA NITROGEN 28 MG/DL (9-23); CARBON DIOXIDE LEVEL 26 MMOL/L (20-31); CHLORIDE LEVEL 106 MMOL/L (98-107); CK-MB VALUE MASS < 1.0 NG/ML (<3.6); CREATININE FOR GFR 1.14 MG/DL (0.55-1.30); GLOMERULAR FILTRATION RATE 48.7 (>32); GLUCOSE, FASTING 92 MG/DL (74-106); MAGNESIUM LEVEL 1.8 MG/DL (1.8-2.4); POTASSIUM SERUM 4.1 MMOL/L (3.5-5.1); SODIUM LEVEL 138 MMOL/L (136-145)
[2024-05-01 13:12] LABS: FREE T4 0.76 NG/DL (0.89-1.76); THYROID STIMULATING HORMONE 1.436 uIU/ML (0.55-4.78)
[2024-05-01 13:48] LABS: CPK CREATINE PHOSPHOKINASE 68 U/L (34-145); MB/CK RELATIVE INDEX 1.47 (< OR =4)
[2024-05-01 13:58] LABS: CK-MB VALUE MASS < 1.0 NG/ML (<3.6)
[2024-05-01 14:05] LABS: CPK CREATINE PHOSPHOKINASE 71 U/L (34-145)
[2024-05-01] MEDS: MORPHINE 2 MG/ML 1ML VIAL IV ONE (14:10)
[2024-05-01] MEDS ORDERED: DICL50TA2 PO (14:17)
[2024-05-01] MEDS ORDERED: B-121TAB3 PO (14:17)
[2024-05-01] MEDS ORDERED: CARB25TA31 PO (14:17)
[2024-05-01] MEDS ORDERED: CLOP75TA2 PO (14:17)
[2024-05-01] MEDS ORDERED: DULO1CAP4 PO (14:17)
[2024-05-01] MEDS ORDERED: GABA-1171 PO (14:17)
[2024-05-01] MEDS ORDERED: HOME MED LIST COMPLETE! XX SCH (14:20)
[2024-05-01] MEDS ORDERED: PILL CUTTER 1 EACH XX PRN (16:05)
[2024-05-01] MEDS ORDERED: ISOVUE-370 76% 100ML VIAL As Ordered ONE (16:14)
[2024-05-01 17:53] LABS: HEMATOCRIT 25.3 % (36.0-47.0); HEMOGLOBIN 7.9 g/dl (12.0-15.5); MEAN CORPUSCULAR HEMOGLOBIN 30.4 pg (27.0-33.0); MEAN CORPUSCULAR HGB CONC 31.2 g/dl (32.0-36.5); MEAN CORPUSCULAR VOLUME 97.3 fl (80.0-96.0); PLATELET COUNT, AUTOMATED 246 10^3/uL (150-450); WHITE BLOOD COUNT 7.2 10^3/uL (4.0-10.0)
[2024-05-01] MEDS: GABAPENTIN 100 MG CAP PO SCH (18:09)
[2024-05-01] MEDS: SINEMET**CR** 25/100 TABCR PO SCH ×2 (20:03→20:07)
[2024-05-01 20:21] LABS: IRON (FE) 10 UG/DL (50-170); PERCENT SATURATION 3.8 % (13.2-45.0); TOTAL IRON BINDING CAPACITY 263 UG/DL (250-425)
[2024-05-01 22:24] LABS: HEMATOCRIT 24.4 % (36.0-47.0); HEMOGLOBIN 7.7 g/dl (12.0-15.5); MEAN CORPUSCULAR HEMOGLOBIN 30.6 pg (27.0-33.0); MEAN CORPUSCULAR HGB CONC 31.6 g/dl (32.0-36.5); MEAN CORPUSCULAR VOLUME 96.8 fl (80.0-96.0); PLATELET COUNT, AUTOMATED 225 10^3/uL (150-450); RED BLOOD COUNT 2.52 10^6/uL (4.00-5.40)
[2024-05-01] MEDS: DULoxetine 20MG CAP (CYMBALTA) PO SCH (23:25)
[2024-05-02] MEDS: ACETAMINOPHEN 325 MG TAB PO PRN (04:35)
[2024-05-02 07:05] LABS: HEMOGLOBIN 7.9 g/dl (12.0-15.5); MEAN CORPUSCULAR HEMOGLOBIN 29.6 pg (27.0-33.0); MEAN CORPUSCULAR HGB CONC 30.4 g/dl (32.0-36.5); MEAN CORPUSCULAR VOLUME 97.4 fl (80.0-96.0); PLATELET COUNT, AUTOMATED 247 10^3/uL (150-450); RED BLOOD COUNT 2.67 10^6/uL (4.00-5.40); WHITE BLOOD COUNT 7.1 10^3/uL (4.0-10.0)
[2024-05-02 07:45] LABS: BLOOD UREA NITROGEN 22 MG/DL (9-23); CALCIUM LEVEL 8.7 MG/DL (8.3-10.6); CARBON DIOXIDE LEVEL 24 MMOL/L (20-31); CHLORIDE LEVEL 109 MMOL/L (98-107); CREATININE FOR GFR 0.94 MG/DL (0.55-1.30); GLOMERULAR FILTRATION RATE > 60.0 (>32); GLUCOSE, FASTING 80 MG/DL (74-106); SODIUM LEVEL 142 MMOL/L (136-145)
[2024-05-02] MEDS: CLOPIDOGREL 75 MG TAB PO SCH (09:45)
[2024-05-02] MEDS: IRON SUCROSE 100MG 5ML VIAL IV SCH (09:45)
[2024-05-02 12:55] VITALS: BP 156/69; TEMP 97.2; O2SAT 96
[2024-05-02 13:10] VITALS: BP 156/69; TEMP 97; O2SAT 98
[2024-05-02 13:33] VITALS: BP 140/89; TEMP 99; O2SAT 96
[2024-05-02 14:34] VITALS: BP 160/87; TEMP 99; O2SAT 98
[2024-05-02 16:14] LABS: HEMATOCRIT 31.6 % (36.0-47.0); HEMOGLOBIN 10.1 g/dl (12.0-15.5)
[2024-05-02] MEDS: FLUBLOK(EGGFREE) TRIVAL(24-25) VACCINE PF 0.5ML SYRINGE 18YRS & OLDER IM.IMMUN ONE (16:35)
== END 2024-05-02 16:47 | DRG 57 ==
LOC: M ED 11:24 → EDBD 11:24 → M ED INP 17:13 → M MSPAV 05-02 13:26
PROVIDERS: ADMIT Student in an Organized Health Care Education/Training Program; ATTEND Student in an Organized Health Care Education/Training Program
PROC: B246ZZZ Ultrasonography of Right and Left Heart (ICD-10-PCS; principal; 2024-05-02)
DX: G90.3 Multi-system degeneration of the autonomic nervous system (principal); G20.A1 Parkinson's disease without dyskinesia, without mention of fluctuations; D50.9 Iron deficiency anemia, unspecified; G25.81 Restless legs syndrome; I73.9 Peripheral vascular disease, unspecified; F39 Unspecified mood [affective] disorder; R29.6 Repeated falls; I25.10 Atherosclerotic heart disease of native coronary artery without angina pectoris; G62.9 Polyneuropathy, unspecified; K59.00 Constipation, unspecified; E03.9 Hypothyroidism, unspecified; I70.0 Atherosclerosis of aorta; Z66 Do not resuscitate; Z85.828 Personal history of other malignant neoplasm of skin; Z79.02 Long term (current) use of antithrombotics/antiplatelets; Z90.49 Acquired absence of other specified parts of digestive tract; Z79.899 Other long term (current) drug therapy; Z88.0 Allergy status to penicillin

== ENCOUNTER 2024-05-02 15:56 | Inpatient (IN) | payer MEDICARE ==
[~2024-05-02] VITALS: Ht 154.9 cm; Wt 57.4 kg
[~2024-05-02 15:56] MED LIST changes: +B-121TAB3 PO; +CARB25TA31 PO; +CLOP75TA2 PO; +DICL50TA2 PO; +DULO1CAP4 PO; +GABA-1171 PO
[2024-05-02] MEDS ORDERED: BISACODYL 10MG SUPP PR PRN (16:00)
[2024-05-02] MEDS ORDERED: BISACODYL 5MG TAB PO PRN (16:00)
[2024-05-02] MEDS ORDERED: SIMETHICONE 80MG CHEW TAB PO PRN (16:00)
[2024-05-02] MEDS ORDERED: MAALOX 30 ML SUSP *UDC PO PRN (16:00)
[2024-05-02] MEDS ORDERED: MOM 30ML SUSPENSION UDC PO PRN (16:00)
[2024-05-02] MEDS ORDERED: ONDANSETRON 4MG ORAL DISINTEGRATING TAB SL PRN (16:20)
[2024-05-02 16:55] VITALS: BP 159/72; TEMP 98; O2SAT 96
[2024-05-02] MEDS: SINEMET**CR** 25/100 TABCR PO SCH ×2 (17:00→20:58)
[2024-05-02] MEDS: GABAPENTIN 100 MG CAP PO SCH (17:47)
[2024-05-02] MEDS ORDERED: PILL CUTTER 1 EACH XX PRN (17:50)
[2024-05-02 20:00] VITALS: BP 138/65; TEMP 98.1; O2SAT 98
[2024-05-02] MEDS: DULoxetine 20MG CAP (CYMBALTA) PO SCH (20:57)
[2024-05-02] MEDS: ACETAMINOPHEN 325 MG TAB PO PRN (20:59)
[2024-05-03] MEDS: KETOROLAC 30 MG/ML 1ML VIAL IV ONE (01:49)
[2024-05-03] MEDS: METHOCARBAMOL 1,000 MG/10 ML VIAL IV ONE (01:49)
[2024-05-03 04:00] VITALS: BP 165/83; TEMP 98; O2SAT 97
[2024-05-03 05:00] VITALS: BP 136/62
[2024-05-03 06:44] LABS: BASO # 0.1 10^3/uL (0.0-0.2); BASO % 1.1 % (0.0-1.0); EOS # 0.6 10^3/uL (0.0-0.5); EOS % 9.7 % (0.0-3.0); HEMATOCRIT 28.6 % (36.0-47.0); HEMOGLOBIN 9.2 g/dl (12.0-15.5); LYMPH # 0.9 10^3/uL (1.5-5.0); LYMPH % 13.7 % (24.0-44.0); MEAN CORPUSCULAR HEMOGLOBIN 30.1 pg (27.0-33.0); MEAN CORPUSCULAR HGB CONC 32.2 g/dl (32.0-36.5); MEAN CORPUSCULAR VOLUME 93.5 fl (80.0-96.0); MONO # 0.5 10^3/uL (0.0-0.8); MONO % 7.4 % (2.0-8.0); NEUTROPHILS # 4.2 10^3/uL (1.5-8.5); NEUTROPHILS % 67.8 % (36.0-66.0); PLATELET COUNT, AUTOMATED 226 10^3/uL (150-450); RED BLOOD COUNT 3.06 10^6/uL (4.00-5.40); WHITE BLOOD COUNT 6.2 10^3/uL (4.0-10.0)
[2024-05-03 07:08] LABS: ALBUMIN 2.4 G/DL (3.2-5.2); ALKALINE PHOSPHATASE 81 U/L (35-104); ALT/SGPT < 9 U/L (7.0-40); AST/SGOT 14 U/L (<34); BILIRUBIN,TOTAL 0.3 MG/DL (0.3-1.2); BLOOD UREA NITROGEN 15 MG/DL (9-23); CALCIUM LEVEL 8.3 MG/DL (8.3-10.6); CARBON DIOXIDE LEVEL 25 MMOL/L (20-31); CHLORIDE LEVEL 107 MMOL/L (98-107); CREATININE FOR GFR 0.76 MG/DL (0.55-1.30); GLOMERULAR FILTRATION RATE > 60.0 (>32); GLUCOSE, FASTING 80 MG/DL (74-106); POTASSIUM SERUM 3.9 MMOL/L (3.5-5.1); SODIUM LEVEL 139 MMOL/L (136-145); TOTAL PROTEIN 5.9 G/DL (5.7-8.2)
[2024-05-03] MEDS: CYANOCOBALAMIN 500 MCG TAB PO SCH (08:20)
[2024-05-03] MEDS: CLOPIDOGREL 75 MG TAB PO SCH (08:20)
[2024-05-03] MEDS: MIRALAX *UNIT DOSE* 17GM PACKET PO SCH (09:00)
[2024-05-03] MEDS ORDERED: ACETAMINOPHEN 325 MG TAB PO PRN (11:05)
[2024-05-03 12:00] VITALS: BP_SYST 117; BP_SYST 140; BP_DIAS 55; BP_DIAS 77; TEMP 97.5; TEMP 97.9; O2SAT 100; O2SAT 99
[2024-05-03] MEDS: IBUPROFEN 400MG TAB PO SCH (12:56)
[2024-05-03] MEDS: PANTOPRAZOLE 40MG TAB (PROTONIX) PO ONE (12:57)
[2024-05-03] MEDS ORDERED: SENNA 8.6 MG TAB (SENOKOT) PO PRN (13:55)
[2024-05-03] MEDS: IRON SUCROSE 100MG/5ML VIAL IV SCH (16:33)
[2024-05-03] MEDS: BISACODYL 5MG TAB PO ONE (16:34)
[2024-05-03] MEDS: ACETAMINOPHEN 500 MG TAB PO SCH (18:41)
[2024-05-03 20:00] VITALS: BP 145/68; TEMP 98.6; O2SAT 95
[2024-05-03] MEDS: rOPINIRole 0.25 MG TAB(REQUIP) PO SCH (21:02)
[2024-05-03 23:54] LABS: KETONE, URINE AUTO RFX TRACE mg/dL (NEGATIVE); LEUKOCYTE ESTERASE UR AUTO RFX NEGATIVE (NEGATIVE); NITRITE, URINE AUTO RFX NEGATIVE (NEGATIVE); RBC, URINE AUTO RFX 0 /HPF (0-3); SQUAM EPITHELIAL CELL UR AURFX 0 /HPF (0-6); WBC, URINE AUTO RFX 1 /HPF (0-3)
[2024-05-04 04:00] VITALS: BP 145/81; TEMP 97; O2SAT 95
[2024-05-04] MEDS: PANTOPRAZOLE 40MG TAB (PROTONIX) PO SCH (08:06)
[2024-05-04] MEDS: BISACODYL 5MG TAB PO SCH (08:06)
[2024-05-04 12:00] VITALS: BP 142/80; TEMP 97; O2SAT 98
[2024-05-04 20:01] VITALS: BP 135/61; TEMP 97.9; O2SAT 95
[2024-05-05 04:00] VITALS: BP 145/72; TEMP 97.7; O2SAT 95
[2024-05-05] MEDS: FLUDROCORTISONE ACETATE 0.1 MG TAB PO SCH (05:41)
[2024-05-05 12:00] VITALS: BP 129/66; TEMP 98.3; O2SAT 100
[2024-05-05 20:00] VITALS: BP 150/67; TEMP 97.3; O2SAT 97
[2024-05-06] MEDS: methocarbamoL 500 MG TAB PO PRN (02:00)
[2024-05-06 04:00] VITALS: BP 135/63; TEMP 97.5; O2SAT 93
[2024-05-06] MEDS: **hydrALAZINE** 10 MG TAB PO PRN (11:07)
[2024-05-06 12:00] VITALS: BP_SYST 120; BP_SYST 130; BP_DIAS 60; BP_DIAS 64; TEMP 97.2; TEMP 99; O2SAT 98
[2024-05-06 20:00] VITALS: BP 135/68; TEMP 98.1; O2SAT 95
[2024-05-07 04:00] VITALS: BP 158/73; TEMP 97.1; O2SAT 94
[2024-05-07 12:00] VITALS: BP 146/82; TEMP 97.9; O2SAT 98
[2024-05-07 20:15] VITALS: BP 149/70; TEMP 96.9; O2SAT 94
[2024-05-08 04:27] VITALS: BP 123/56; TEMP 97.6; O2SAT 92
[2024-05-08 12:00] VITALS: BP 145/60; TEMP 97.6; O2SAT 97
[2024-05-08] MEDS: MIDODRINE 2.5 MG TAB PO SCH (12:00)
[2024-05-08 19:59] VITALS: BP 141/65; TEMP 98.4; O2SAT 97
[2024-05-09 04:08] VITALS: BP 137/68; TEMP 97.4; O2SAT 95
[2024-05-09 11:58] VITALS: BP 134/70; TEMP 97.8; O2SAT 94
[2024-05-09 19:34] VITALS: BP 129/70; TEMP 97.1; O2SAT 97
[2024-05-10 03:33] VITALS: BP 155/71; TEMP 98.3; O2SAT 93
[2024-05-10 12:00] VITALS: BP 132/82; TEMP 98; O2SAT 99
[2024-05-10] MEDS ORDERED: CARB25TA31 PO (14:47)
[2024-05-10] MEDS ORDERED: ACET32TAB PO (14:47)
[2024-05-10] MEDS ORDERED: CLOP75TA2 PO (14:47)
[2024-05-10] MEDS ORDERED: GABA-1171 PO (14:47)
[2024-05-10] MEDS ORDERED: DULO1CAP4 PO (14:47)
[2024-05-10] MEDS ORDERED: IBUP-1114 PO (14:47)
[2024-05-10] MEDS ORDERED: MIRA33506 PO (14:47)
[2024-05-10] MEDS ORDERED: METH-1164 PO (14:47)
[2024-05-10] MEDS ORDERED: BISAC5TA PO (14:47)
[2024-05-10] MEDS ORDERED: SENO8.6T5 PO (14:47)
[2024-05-10] MEDS ORDERED: B-121TAB3 PO (14:47)
[2024-05-10] MEDS ORDERED: PANT40TA29 PO (14:47)
[2024-05-10] MEDS ORDERED: MIDO2.5T3 PO (14:47)
[2024-05-10 20:00] VITALS: BP 163/79; TEMP 97.9; O2SAT 95
[2024-05-10 20:47] VITALS: BP 163/79
[2024-05-11 04:00] VITALS: BP 128/59; TEMP 97.7; O2SAT 98
== END 2024-05-11 11:15 | disposition home health service (06) | DRG 57 ==
LOC: M PM&R 17:00
PROVIDERS: ADMIT Physical Medicine & Rehabilitation; ATTEND Physical Medicine & Rehabilitation
DX: G20.A2 Parkinson's disease without dyskinesia, with fluctuations (principal); F39 Unspecified mood [affective] disorder; D50.9 Iron deficiency anemia, unspecified; G62.9 Polyneuropathy, unspecified; I25.10 Atherosclerotic heart disease of native coronary artery without angina pectoris; G90.3 Multi-system degeneration of the autonomic nervous system; K59.00 Constipation, unspecified; Z66 Do not resuscitate; G25.81 Restless legs syndrome; I73.9 Peripheral vascular disease, unspecified; R26.89 Other abnormalities of gait and mobility; Z74.1 Need for assistance with personal care; Z74.09 Other reduced mobility; R13.10 Dysphagia, unspecified; G31.84 Mild cognitive impairment of uncertain or unknown etiology; Z88.0 Allergy status to penicillin; Z79.899 Other long term (current) drug therapy; Z90.49 Acquired absence of other specified parts of digestive tract; Z95.5 Presence of coronary angioplasty implant and graft; Z90.79 Acquired absence of other genital organ(s)

== ENCOUNTER 2024-08-14 09:47 | Emergency (ER) | payer MEDICARE ==
[~2024-08-14] VITALS: Ht 154.9 cm; Wt 54.1 kg
[~2024-08-14 09:47] MED LIST changes: +ACET32TAB PO; +BISAC5TA PO; +IBUP-1114 PO; +METH-1164 PO; +MIDO2.5T3 PO; +MIRA33506 PO; +PANT40TA29 PO; +SENO8.6T5 PO
[2024-08-14 10:09] VITALS: TEMP 96.7
[2024-08-14 10:51] LABS: BASO # 0.0 10^3/uL (0.0-0.2); BASO % 0.5 % (0.0-1.0); EOS # 0.1 10^3/uL (0.0-0.5); EOS % 2.6 % (0.0-3.0); LYMPH # 0.6 10^3/uL (1.5-5.0); LYMPH % 15.9 % (24.0-44.0); MONO # 0.4 10^3/uL (0.0-0.8); MONO % 10.4 % (2.0-8.0); NEUTROPHILS # 2.7 10^3/uL (1.5-8.5); NEUTROPHILS % 70.3 % (36.0-66.0); PLATELET COUNT, AUTOMATED 121 10^3/uL (150-450)
[2024-08-14 11:19] LABS: ALT/SGPT 18.0 U/L (7.0-40); AST/SGOT 77.0 U/L (<34); CALCIUM LEVEL 9.3 MG/DL (8.3-10.6); CARBON DIOXIDE LEVEL 30.0 MMOL/L (20-31); CHLORIDE LEVEL 103.0 MMOL/L (98-107); CPK CREATINE PHOSPHOKINASE 88.0 U/L (34-145); CREATININE FOR GFR 0.85 MG/DL (0.55-1.30); GLOMERULAR FILTRATION RATE 68.8 (>32); POTASSIUM SERUM 3.9 MMOL/L (3.5-5.1); SODIUM LEVEL 142.0 MMOL/L (136-145)
[2024-08-14 11:31] LABS: KETONE, URINE AUTO RFX TRACE mg/dL (NEGATIVE); LEUKOCYTE ESTERASE UR AUTO RFX NEGATIVE (NEGATIVE); NITRITE, URINE AUTO RFX NEGATIVE (NEGATIVE); RBC, URINE AUTO RFX 1 /HPF (0-3); SQUAM EPITHELIAL CELL UR AURFX 0 /HPF (0-6); WBC, URINE AUTO RFX 1 /HPF (0-3)
[2024-08-14] MEDS ORDERED: GABA-1171 PO ×2 (13:45)
[2024-08-14] MEDS ORDERED: CYMB1CAP4 PO (13:45)
[2024-08-14] MEDS ORDERED: FERR324T2 PO (13:45)
[2024-08-14] MEDS ORDERED: MIDO2.5T3 PO (13:45)
[2024-08-14] MEDS ORDERED: OYST1TAB5 PO (13:45)
[2024-08-14] MEDS ORDERED: ROSU20TA86 PO (13:45)
[2024-08-14] MEDS ORDERED: PANT-23 PO (13:45)
[2024-08-14] MEDS ORDERED: HOME MED LIST COMPLETE! XX SCH (13:50)
[2024-08-14 14:15] VITALS: BP 162/72
[2024-08-14 14:32] VITALS: O2SAT 96
== END 2024-08-14 14:45 | disposition home or self-care (01) ==
LOC: M ED 09:47 → EDBD 09:47 → M ED 14:45
DX: R53.1 Weakness (principal); I50.22 Chronic systolic (congestive) heart failure; E78.5 Hyperlipidemia, unspecified; D50.9 Iron deficiency anemia, unspecified; G20.A1 Parkinson's disease without dyskinesia, without mention of fluctuations; Z88.0 Allergy status to penicillin; Z79.899 Other long term (current) drug therapy

== ENCOUNTER 2024-10-07 05:28 | Emergency (ER) | payer MEDICARE ==
[~2024-10-07] VITALS: Ht 154.9 cm; Wt 54.9 kg
[~2024-10-07 05:28] MED LIST changes: +CYMB1CAP4 PO; +FERR324T2 PO; +OYST1TAB5 PO; +PANT-23 PO; +ROSU20TA86 PO; +SENN-225 PO; -SENO8.6T5 PO
[2024-10-07 05:45] VITALS: TEMP 96.4
[2024-10-07 06:39] LABS: BASO # 0.0 10^3/uL (0.0-0.2); BASO % 1.0 % (0.0-1.0); EOS # 0.1 10^3/uL (0.0-0.5); EOS % 2.8 % (0.0-3.0); LYMPH # 0.7 10^3/uL (1.5-5.0); LYMPH % 25.7 % (24.0-44.0); MONO # 0.4 10^3/uL (0.0-0.8); MONO % 12.2 % (2.0-8.0); NEUTROPHILS # 1.7 10^3/uL (1.5-8.5); NEUTROPHILS % 58.3 % (36.0-66.0); PLATELET COUNT, AUTOMATED 118 10^3/uL (150-450)
[2024-10-07 07:01] LABS: CK-MB VALUE MASS < 1.0 NG/ML (<3.6)
[2024-10-07 07:04] LABS: ALT/SGPT < 9 U/L (7.0-40); AST/SGOT 33 U/L (<34); CALCIUM LEVEL 9.8 MG/DL (8.3-10.6); CARBON DIOXIDE LEVEL 27 MMOL/L (20-31); CHLORIDE LEVEL 105 MMOL/L (98-107); CREATININE FOR GFR 1.03 MG/DL (0.55-1.30); GLOMERULAR FILTRATION RATE 54.3 (>32); POTASSIUM SERUM 4.4 MMOL/L (3.5-5.1); SODIUM LEVEL 140 MMOL/L (136-145)
[2024-10-07 07:06] LABS: FREE T4 1.08 NG/DL (0.89-1.76)
[2024-10-07 07:08] LABS: CPK CREATINE PHOSPHOKINASE 94 U/L (34-145)
[2024-10-07] MEDS: LIDOCAINE 2% 5 ML JELLY UROJET TOP ONE (07:15)
[2024-10-07] MEDS: ACETAMINOPHEN *IV* 1,000 MG in IV 1 EA IV ONE (07:45)
[2024-10-07] MEDS: NS 500 ML IV ONE (07:45)
[2024-10-07 08:23] LABS: CK-MB VALUE MASS < 1.0 NG/ML (<3.6)
[2024-10-07 08:28] LABS: CPK CREATINE PHOSPHOKINASE 83 U/L (34-145)
[2024-10-07 09:20] LABS: KETONE, URINE AUTO RFX TRACE mg/dL (NEGATIVE); LEUKOCYTE ESTERASE UR AUTO RFX NEGATIVE (NEGATIVE); MUCUS, URINE RFX SMALL (NEGATIVE); NITRITE, URINE AUTO RFX NEGATIVE (NEGATIVE); RBC, URINE AUTO RFX 0 /HPF (0-3); SQUAM EPITHELIAL CELL UR AURFX 0 /HPF (0-6); WBC, URINE AUTO RFX 1 /HPF (0-3)
[2024-10-07 10:23] LABS: CK-MB VALUE MASS 1.1 NG/ML (<3.6)
[2024-10-07 10:24] LABS: CPK CREATINE PHOSPHOKINASE 86.0 U/L (34-145); MB/CK RELATIVE INDEX 1.27 (< OR =4)
[2024-10-07 10:45] VITALS: BP 177/86
[2024-10-07] MEDS: KETOROLAC 30 MG/ML 1 ML VIAL IV ONE (10:49)
[2024-10-07 10:51] VITALS: O2SAT 99
[2024-10-07] MEDS ORDERED: MOXI400T11 PO (11:25)
[2024-10-07] MEDS: MOXIFLOXACIN 400 MG TAB PO ONE (11:39)
== END 2024-10-07 11:45 | disposition home or self-care (01) ==
LOC: M ED 05:28
DX: R00.2 Palpitations (principal); R51.9 Headache, unspecified; R53.1 Weakness; J18.9 Pneumonia, unspecified organism; K21.9 Gastro-esophageal reflux disease without esophagitis; Z88.0 Allergy status to penicillin; Z79.899 Other long term (current) drug therapy
CPT/HCPCS: 51701; 70450; 71045; 80048; 80076; 81001; 82550; 82553; 83690; 84439; 84443; 84484; 85025; 87486; 87581; 87633; 87798; 93005; 93041; 93970; 94760; 96365; 96375; 99285; J0131; J1885

== ENCOUNTER 2024-10-21 23:14 | Emergency (ER) | payer MEDICARE ==
[~2024-10-21] VITALS: Ht 157.5 cm; Wt 54.5 kg
[~2024-10-21 23:14] MED LIST changes: +MOXI400T11 PO
[2024-10-22 00:39] LABS: PLATELET COUNT, AUTOMATED 124 10^3/uL (150-450)
[2024-10-22] MEDS: ACETAMINOPHEN 325 MG TAB PO ONE (00:43)
[2024-10-22] MEDS: traMADol 50 MG TAB PO ONE (00:43)
[2024-10-22 00:56] LABS: ALT/SGPT 11.0 U/L (7.0-40); AST/SGOT 53.0 U/L (<34); CALCIUM LEVEL 9.8 MG/DL (8.3-10.6); CARBON DIOXIDE LEVEL 21.0 MMOL/L (20-31); CHLORIDE LEVEL 101.0 MMOL/L (98-107); CREATININE FOR GFR 1.05 MG/DL (0.55-1.30); GLOMERULAR FILTRATION RATE 53.1 (>32); POTASSIUM SERUM 3.6 MMOL/L (3.5-5.1); SODIUM LEVEL 140.0 MMOL/L (136-145)
[2024-10-22] MEDS ORDERED: TRAM50TA2 PO (05:02)
[2024-10-22 06:46] LABS: ALT/SGPT 13.0 U/L (7.0-40); AST/SGOT 45.0 U/L (<34); CALCIUM LEVEL 9.2 MG/DL (8.3-10.6); CARBON DIOXIDE LEVEL 27.0 MMOL/L (20-31); CHLORIDE LEVEL 102.0 MMOL/L (98-107); CREATININE FOR GFR 1.22 MG/DL (0.55-1.30); GLOMERULAR FILTRATION RATE 44.3 (>32); POTASSIUM SERUM 3.6 MMOL/L (3.5-5.1); SODIUM LEVEL 136.0 MMOL/L (136-145)
[2024-10-22 11:21] LABS: PLATELET COUNT, AUTOMATED 104 10^3/uL (150-450)
[2024-10-22 12:25] LABS: AMORPHOUS SEDIMENT SMALL (NEGATIVE); APPEARANCE, URINE HAZY (CLEAR); BACTERIA, URINE AUTO NEGATIVE (NEGATIVE); BILIRUBIN, URINE AUTO NEGATIVE (NEGATIVE); BLOOD, URINE BLOOD NEGATIVE (NEGATIVE); CALCIUM OXALATE CRYSTALS SMALL; GLUCOSE, URINE (UA) AUTO NEGATIVE (NEGATIVE); KETONE, URINE AUTO TRACE mg/dL (NEGATIVE); LEUKOCYTE ESTERASE, URINE AUTO NEGATIVE (NEGATIVE); NITRITE, URINE AUTO NEGATIVE (NEGATIVE); PROTEIN, URINE AUTO 2+ mg/dL (NEGATIVE); RBC, URINE AUTO 4 /HPF (0-3); SPECIFIC GRAVITY URINE AUTO 1.018 (1.002-1.035); SQUAMOUS EPITHELIAL CELL UR AU 0 /HPF (0-6); UROBILINOGEN, URINE AUTO 0.2 mg/dL (0.0-2.0); WBC, URINE AUTO 1 /HPF (0-3)
[2024-10-22 14:21] VITALS: BP 144/76; TEMP 98.9; O2SAT 97
== END 2024-10-22 14:25 | disposition short-term general hospital (02) ==
LOC: M ED 23:14
DX: I21.4 Non-ST elevation (NSTEMI) myocardial infarction (principal); M25.561 Pain in right knee; M25.562 Pain in left knee; R06.4 Hyperventilation; I45.81 Long QT syndrome; I25.119 Atherosclerotic heart disease of native coronary artery with unspecified angina pectoris; I50.22 Chronic systolic (congestive) heart failure; Z88.0 Allergy status to penicillin; Z79.899 Other long term (current) drug therapy

== ENCOUNTER 2025-01-15 15:53 | Emergency (ER) | payer MEDICARE ==
[~2025-01-15] VITALS: Ht 152.4 cm; Wt 54.1 kg
[~2025-01-15 15:53] MED LIST changes: +TRAM50TA2 PO
[2025-01-15 16:08] VITALS: TEMP 97.9
[2025-01-15] MEDS: NS (Normal Saline) 0.9% 1,000 ML IV SCH (16:39)
[2025-01-15 16:40] LABS: VENOUS BASE EXCESS 1.3 (-2.0-2.0); VENOUS HCO3 27.2 MMOL/L (23.0-27.0); VENOUS O2 SATURATION 80.3 % (60.0-80.0); VENOUS PARTIAL PRESSURE CO2 48.3 mmHg (38.0-50.0); VENOUS PARTIAL PRESSURE O2 44.9 mmHg (30.0-50.0); VENOUS PH 7.368 UNITS (7.330-7.430); VENOUS STANDARD HCO3 25.3 MMOL/L; VENOUS TOTAL CO2 28.7 MMOL/L (24.0-28.0)
[2025-01-15] MEDS: GABAPENTIN 100 MG CAP PO ONE (17:43)
[2025-01-15 17:54] LABS: BASO # 0.0 10^3/uL (0.0-0.2); BASO % 0.7 % (0.0-1.0); EOS # 0.1 10^3/uL (0.0-0.5); EOS % 1.2 % (0.0-3.0); LYMPH # 0.9 10^3/uL (1.5-5.0); LYMPH % 23.3 % (24.0-44.0); MONO # 0.3 10^3/uL (0.0-0.8); MONO % 8.4 % (2.0-8.0); NEUTROPHILS # 2.7 10^3/uL (1.5-8.5); NEUTROPHILS % 66.4 % (36.0-66.0); PLATELET COUNT, AUTOMATED 119 10^3/uL (150-450)
[2025-01-15] MEDS ORDERED: HYDR-643 PO (18:01)
[2025-01-15] MEDS ORDERED: ASPI81TA26 PO (18:01)
[2025-01-15] MEDS ORDERED: THERTAB52 PO (18:01)
[2025-01-15] MEDS ORDERED: MIDO10TA3 PO (18:01)
[2025-01-15] MEDS ORDERED: DULO20CA27 PO (18:01)
[2025-01-15] MEDS ORDERED: ONDA-282 PO (18:03)
[2025-01-15] MEDS ORDERED: HOME MED LIST COMPLETE! XX SCH (18:05)
[2025-01-15] MEDS ORDERED: CYAN500T3 PO (18:05)
[2025-01-15 18:22] LABS: FREE T4 1.15 NG/DL (0.89-1.76)
[2025-01-15 18:30] LABS: ALT/SGPT 29.0 U/L (7.0-40); AST/SGOT 83.0 U/L (<34); CALCIUM LEVEL 9.6 MG/DL (8.3-10.6); CARBON DIOXIDE LEVEL 27.0 MMOL/L (20-31); CHLORIDE LEVEL 102.0 MMOL/L (98-107); CREATININE FOR GFR 0.92 MG/DL (0.55-1.30); GLOMERULAR FILTRATION RATE 62.2 (>32); MAGNESIUM LEVEL 2.3 MG/DL (1.8-2.4); POTASSIUM SERUM 4.1 MMOL/L (3.5-5.1); SODIUM LEVEL 139.0 MMOL/L (136-145)
[2025-01-15 22:15] VITALS: BP 195/90; O2SAT 94
== END 2025-01-15 23:02 | disposition left against medical advice (07) ==
LOC: M ED 15:53
DX: R55 Syncope and collapse (principal); R53.1 Weakness; I49.3 Ventricular premature depolarization; I45.81 Long QT syndrome; D50.9 Iron deficiency anemia, unspecified; G20.A1 Parkinson's disease without dyskinesia, without mention of fluctuations; G62.9 Polyneuropathy, unspecified; Z88.0 Allergy status to penicillin; Z79.1 Long term (current) use of non-steroidal anti-inflammatories (NSAID); Z79.899 Other long term (current) drug therapy; Z79.810 Long term (current) use of selective estrogen receptor modulators (SERMs)
CPT/HCPCS: 71045; 80048; 80076; 82803; 83735; 84439; 84443; 85025; 93005; 93041; 94760; 96361; 96374; 99285; J2060